=== PATIENT | male | born 1960 | race Caucasian/White ===

== ENCOUNTER 2017-03-31 00:31 | Emergency (ER) | payer MEDICARE, MEDICAID ==
[~2017-03-31] VITALS: Ht 185.4 cm; Wt 80.0 kg
[2017-03-31] MEDS ORDERED: TETanus/Pertussis (Acell)/Diphther VAC/PF (Tdap-Adult) 0.5ml syringe IM ONE (01:50)
[2017-03-31 02:22] LABS: BASOPHILS % (AUTO) 0.3 % (0-1); EOSINOPHILS # (AUTO) 0.1 X10'3 (0-0.9); EOSINOPHILS % (AUTO) 0.8 % (0-6); HEMOGLOBIN 14.6 g/dl (14.0-17.9); LYMPHOCYTES # (AUTO) 1.2 X10'3 (1.1-4.8); MEAN CORPUSCULAR HEMOGLOBIN 32.4 PG (27.0-31.0); MEAN CORPUSCULAR VOLUME 95.2 FL (78-98); MEAN PLATELET VOLUME 8.1 FL (7.4-10.4); MONOCYTES # (AUTO) 0.7 X10'3 (0-0.9); MONOCYTES % (AUTO) 4.4 % (2-12); NEUTROPHILS # (AUTO) 13.3 X10'3 (1.8-7.7); NEUTROPHILS % (AUTO) 86.5 % (42-75); PLATELET COUNT 186 X10'3 (140-440); RED BLOOD COUNT 4.52 X10'6 (4.70-6.10); RED CELL DISTRIBUTION WIDTH 13.9 % (11.5-14.5); WHITE BLOOD COUNT 15.4 X10'3 (4.5-11.0)
[2017-03-31 02:34] LABS: CLARITY,URINE CLEAR (Clear); COLOR,URINE YELLOW (Yellow); GLUCOSE, URINE NEGATIVE (Neg); KETONES,URINE 15 mg/dl (Neg); LEUKOCYTE ESTERASE ,URINE NEGATIVE (Neg); NITRITES, URINE NEGATIVE (Neg); OCCULT BLOOD,URINE MODERATE (Neg); PROTEIN,URINE NEGATIVE (Neg); UROBILINOGEN,URINE 0.2 E.U/dL (0.2-1.0)
[2017-03-31 02:46] LABS: URINE AMPHETAMINE SCREEN NEGATIVE (Neg); URINE BARBITUATE SCREEN NEGATIVE (Neg); URINE BENZODIAZEPINES SCREEN NEGATIVE (Neg); URINE CANNABINOID SCREEN NEGATIVE (Neg); URINE COCAINE SCREEN NEGATIVE (Neg); URINE METHADONE SCREEN NEGATIVE (Neg); URINE OPIATE SCREEN POSITIVE (Neg); URINE PHENCYCLIDINE SCREEN NEGATIVE (Neg)
[2017-03-31 02:58] LABS: UA COLLECTION TYPE VOIDED
[2017-03-31 03:03] LABS: ACETAMINOPHEN < 2.0 UG/ML (10-30); ALANINE AMINOTRANSFERASE 40 U/L (12-78); ALBUMIN 4.8 G/DL (3.4-5.0); ALBUMIN/GLOBULIN RATIO 1.8 (1.1-1.5); ALKALINE PHOSPHATASE 66 IU/L (46-116); ANION GAP 13 (8-16); ASPARTATE AMINO TRANSFERASE 35 U/L (10-37); BILIRUBIN,TOTAL 0.8 MG/DL (0.1-1.0); BLOOD UREA NITROGEN 15 MG/DL (7-18); CHLORIDE 98 MMOL/L (99-107); CKMB RELATIVE INDEX 2.4 RATIO (0-2.5); CREATINE KINASE 611 U/L (39-308); GLUCOSE 93 MG/DL (70-104); POTASSIUM 4.2 MMOL/L (3.5-5.1); SODIUM 132 MMOL/L (135-145); TOTAL CARBON DIOXIDE 21.4 MMOL/L (24-32); TOTAL PROTEIN 7.5 G/DL (6.4-8.2); eGFR 77 ML/MIN
[2017-03-31 03:05] LABS: MYOGLOBIN 1330 ng/ml (16-96)
[2017-03-31 03:06] LABS: ETHANOL < 0.010 GM/DL (0.0-0.010)
[2017-03-31 03:07] LABS: BACTERIA,URINE NONE SEEN /HPF (Neg); SQUAMOUS EPITHELIAL CELL,UR FEW /LPF (FEW); WBC,URINE 0-4 /HPF (0-4)
[2017-03-31 03:08] LABS: HYALINE CASTS 0-3 /LPF (NEGATIVE); MUCUS STRANDS FEW /LPF (Neg)
[2017-03-31 03:47] VITALS: BP 135/4
== END 2017-03-31 03:50 | disposition short-term general hospital (02) ==
LOC: ER 00:31
DX: S02.40EA Zygomatic fracture, right side, initial encounter for closed fracture (principal); S00.83XA Contusion of other part of head, initial encounter; S00.11XA Contusion of right eyelid and periocular area, initial encounter; S60.512A Abrasion of left hand, initial encounter; S60.511A Abrasion of right hand, initial encounter; S50.811A Abrasion of right forearm, initial encounter; R41.82 Altered mental status, unspecified; I62.9 Nontraumatic intracranial hemorrhage, unspecified; X58.XXXA Exposure to other specified factors, initial encounter; Y93.89 Activity, other specified; Y92.89 Other specified places as the place of occurrence of the external cause; Y99.8 Other external cause status
CPT/HCPCS: 36415; 70450; 70486; 80053; 80305; 80320; 80329; 81001; 82140; 82550; 82553; 83735; 83874; 84439; 84443; 84484; 85025; 90471; 90715; 93005; 99291

== ENCOUNTER 2018-03-31 13:11 | Emergency (ER) | payer MEDICARE, MEDICAID ==
[~2018-03-31] VITALS: Ht 185.4 cm; Wt 59.1 kg
[2018-03-31 14:00] LABS: BASOPHILS # (AUTO) 0.1 X10'3 (0-0.2); BASOPHILS % (AUTO) 0.7 % (0-1); EOSINOPHILS # (AUTO) 0.2 X10'3 (0-0.9); EOSINOPHILS % (AUTO) 1.3 % (0-6); HEMATOCRIT 42.6 % (42.0-52.0); HEMOGLOBIN 14.3 g/dl (14.0-17.9); LYMPHOCYTES # (AUTO) 1.4 X10'3 (1.1-4.8); LYMPHOCYTES % (AUTO) 8.5 % (21-51); MEAN CORPUSCULAR HEMOGLOBIN 31.3 PG (27.0-31.0); MEAN CORPUSCULAR HGB CONC 33.6 g/dL (33.0-36.5); MEAN CORPUSCULAR VOLUME 93.2 FL (78-98); MEAN PLATELET VOLUME 8.8 FL (7.4-10.4); MONOCYTES # (AUTO) 1.1 X10'3 (0-0.9); MONOCYTES % (AUTO) 6.8 % (2-12); NEUTROPHILS # (AUTO) 13.4 X10'3 (1.8-7.7); NEUTROPHILS % (AUTO) 82.7 % (42-75); PLATELET COUNT 178 X10'3 (140-440); RED BLOOD COUNT 4.57 X10'6 (4.70-6.10); RED CELL DISTRIBUTION WIDTH 14.6 % (11.5-14.5); WHITE BLOOD COUNT 16.2 X10'3 (4.5-11.0)
[2018-03-31 14:11] LABS: ALANINE AMINOTRANSFERASE 24 U/L (12-78); ALBUMIN 4.2 G/DL (3.4-5.0); ALBUMIN/GLOBULIN RATIO 1.5 (1.1-1.5); ALKALINE PHOSPHATASE 68 IU/L (46-116); ANION GAP 14 (8-16); ASPARTATE AMINO TRANSFERASE 23 U/L (10-37); BILIRUBIN,TOTAL 0.5 MG/DL (0.1-1.0); BLOOD UREA NITROGEN 7 MG/DL (7-18); CALCIUM 9.3 MG/DL (8.5-10.1); CHLORIDE 101 MMOL/L (99-107); GLUCOSE 100 MG/DL (70-104); POTASSIUM 3.7 MMOL/L (3.5-5.1); SODIUM 138 MMOL/L (135-145); TOTAL CARBON DIOXIDE 22.7 MMOL/L (24-32); eGFR 77 ML/MIN
--- NOTE | 2018-03-31 14:15 | NUR ---
[facility] [place] [employer] PH# [phone], WILL CALL LATER TO SEE IF PT MEDICATION INFO CAN BE FAXED HERE.
[2018-03-31 14:19] LABS: ETHANOL < 0.010 GM/DL (0.0-0.010)
--- NOTE | 2018-03-31 14:25 | NUR ---
PT AMBULATORY TO THE BATHROOM WITH STEADY GAIT, NAMRATA AT BATHROOM WATCHING PT CHANGE AND PROVIDE URINE SAMPLE PT CUT HIMSELF CORSETIER AND HAS LONG BELT ON HIS BLUE JEANS, REGISTRATION CALLED TO OVERFLOW TO HAVE LARGE AMOUNT OF MONEY TO COUNT AND PLACE IN SAFE.
--- NOTE | 2018-03-31 14:45 | NUR ---
BELONGINGS REVIEWED BY KEVIN WITH SECURITY, PT STATES HE NEEDS CANE TO WALK AND CAN NON USE WALKER, CANE LABELED WITH PT STICKER AND PLACED IN NURSES STATION TO BE USED FOR PT AMBULATION AT NURSES DISCRETION.
--- NOTE | 2018-03-31 15:00 | NUR ---
REGISTRATION AT PT BEDSID NOW, MONEY BEING COUNTED AND LOCKED UP BY REGISTRATION NOW.
[2018-03-31 15:04] LABS: CLARITY,URINE CLEAR (Clear); COLOR,URINE YELLOW (Yellow); GLUCOSE, URINE NEGATIVE (Neg); KETONES,URINE NEGATIVE (Neg); LEUKOCYTE ESTERASE ,URINE NEGATIVE (Neg); NITRITES, URINE NEGATIVE (Neg); OCCULT BLOOD,URINE MODERATE (Neg); PH,URINE 6.5 (4.8-8.0); PROTEIN,URINE NEGATIVE (Neg); UROBILINOGEN,URINE 0.2 E.U/dL (0.2-1.0)
[2018-03-31 15:08] LABS: UA COLLECTION TYPE NON-SPECIFIED
--- NOTE | 2018-03-31 15:18 | NUR ---
CALLED [facility] IN [place] REQUESTED MEDICATION LIST TO BE FAXED TO ED OVERFLOW.
[2018-03-31 15:20] LABS: URINE AMPHETAMINE SCREEN NEGATIVE (Neg); URINE BARBITUATE SCREEN NEGATIVE (Neg); URINE BENZODIAZEPINES SCREEN NEGATIVE (Neg); URINE CANNABINOID SCREEN NEGATIVE (Neg); URINE COCAINE SCREEN NEGATIVE (Neg); URINE METHADONE SCREEN NEGATIVE (Neg); URINE OPIATE SCREEN POSITIVE (Neg); URINE PHENCYCLIDINE SCREEN NEGATIVE (Neg)
[2018-03-31 15:21] LABS: HYALINE CASTS 0-3 /LPF (NEGATIVE); MUCUS STRANDS FEW /LPF (Neg); SQUAMOUS EPITHELIAL CELL,UR FEW /LPF (FEW)
[2018-03-31 15:23] LABS: BACTERIA,URINE NONE SEEN /HPF (Neg); SPERM FEW /HPF (NEGATIVE); WBC,URINE 0-4 /HPF (0-4)
[2018-03-31] MEDS ORDERED: CLON-527 PO (17:05)
[2018-03-31] MEDS ORDERED: TIZA2CAP7 PO (17:05)
[2018-03-31] MEDS ORDERED: OXYC-138 PO (17:05)
[2018-03-31] MEDS ORDERED: IBUP-1986 PO (17:05)
[2018-03-31] MEDS ORDERED: QUET200T PO (17:05)
[2018-03-31] MEDS ORDERED: ASPI-107 PO (17:05)
[2018-03-31] MEDS ORDERED: BUDE10.2 INH (17:05)
[2018-03-31] MEDS ORDERED: ALBU18HF2 INH (17:05)
[2018-03-31] MEDS ORDERED: NIAC-34 PO (17:05)
[2018-03-31] MEDS ORDERED: BUSP10TA11 PO (17:05)
[2018-03-31] MEDS ORDERED: LEVO50TA8 PO (17:05)
[2018-03-31] MEDS ORDERED: FLO0.4C PO (17:05)
[2018-03-31] MEDS ORDERED: CLON-528 PO (17:05)
--- NOTE | 2018-03-31 18:10 | NUR ---
GAVE REPORT TO DR MAC FABIAN TELEPSYCH, MONITOR AT BEDSIDE, LIGHT ON AND CURTAIN ON SIDE DRAW FOR PRIVACY, PT STILL IN LINE OF SITE OF NURSES STATION, VISIBLE TO 2 RN AND 1 SITTER
--- NOTE | 2018-03-31 18:20 | NUR ---
SPOKE TO MY CHARGE NURSE REGARDING NEED FOR CLOSER SITTER OBSERVATION DUE TO PATIENT ATTEMPTING TO SLICE THROAT PRIOR TO ARRIVING ON UNIT.
[2018-03-31] MEDS ORDERED: albuterol 2.5 MG/3 ML nebule NEB PRN (18:25)
--- NOTE | 2018-03-31 18:50 | NUR ---
MEDS BROUGHT DOWN TO PHARMACY FOR STORAGE
[2018-03-31] MEDS ORDERED: non-formulary drug (Budesonide/Formoterol Fumarate (Symbicort 160-4.5 Mcg Inhaler) 2 PUFFS INH SCH ×2 (20:00)
[2018-03-31] MEDS: busPIRone 5mg tablet PO SCH (20:09)
[2018-03-31] MEDS: tamsulosin 0.4mg capsule PO SCH (20:09)
[2018-03-31] MEDS: aspirin 81mg tab.chew PO SCH (20:09)
[2018-03-31] MEDS: clonazePAM 1mg tablet PO SCH (20:10)
[2018-03-31] MEDS: oxyCODONE/APAP 10/325mg tablet PO PRN (20:12)
--- NOTE | 2018-03-31 20:13 | NUR ---
MEDICATED FOR C/O CHRONIC BACK PAIN, AWAITING XANAFELX FROM PHARMACY AND SEROQUEL.
[2018-03-31] MEDS: albuterol 2.5 MG/3 ML nebule NEB SCH (20:20)
[2018-03-31] MEDS: budesonide 0.5mg/2ml UD nebule IH SCH (20:20)
[2018-03-31] MEDS: tizanidine 4mg tablet PO PRN (20:38)
--- NOTE | 2018-03-31 20:38 | NUR ---
PT PARANOID, WANTS TO "CHECK OFF" MEDS ON HIS LIST HIS RECEIVES THEM.
[2018-03-31] MEDS ORDERED: quetiapine 100mg tablet PO SCH (21:00)
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
[2018-04-01] MEDS: oxyCODONE/APAP 10/325mg tablet PO PRN ×4 (02:50→22:32)
--- NOTE | 2018-04-01 03:09 | NUR ---
MEDICATED FOR C/O BACK PAIN.
[2018-04-01 07:00] LABS: BASOPHILS # (AUTO) 0.1 X10'3 (0-0.2); BASOPHILS % (AUTO) 0.6 % (0-1); EOSINOPHILS # (AUTO) 0.3 X10'3 (0-0.9); EOSINOPHILS % (AUTO) 2.6 % (0-6); HEMATOCRIT 39.1 % (42.0-52.0); HEMOGLOBIN 13.6 g/dl (14.0-17.9); LYMPHOCYTES # (AUTO) 1.8 X10'3 (1.1-4.8); LYMPHOCYTES % (AUTO) 17.8 % (21-51); MEAN CORPUSCULAR HEMOGLOBIN 31.9 PG (27.0-31.0); MEAN CORPUSCULAR HGB CONC 34.7 g/dL (33.0-36.5); MEAN PLATELET VOLUME 8.2 FL (7.4-10.4); MONOCYTES # (AUTO) 0.8 X10'3 (0-0.9); MONOCYTES % (AUTO) 8.1 % (2-12); NEUTROPHILS # (AUTO) 7.1 X10'3 (1.8-7.7); NEUTROPHILS % (AUTO) 70.9 % (42-75); PLATELET COUNT 152 X10'3 (140-440); RED BLOOD COUNT 4.25 X10'6 (4.70-6.10); RED CELL DISTRIBUTION WIDTH 14.4 % (11.5-14.5)
[2018-04-01] MEDS: busPIRone 5mg tablet PO SCH ×2 (07:11→19:30)
[2018-04-01] MEDS: levoTHYROXINE 25mcg tablet PO SCH (07:11)
[2018-04-01] MEDS: tamsulosin 0.4mg capsule PO SCH ×2 (07:11→19:30)
[2018-04-01] MEDS: aspirin 81mg tab.chew PO SCH ×2 (07:11→19:30)
[2018-04-01] MEDS: clonazePAM 1mg tablet PO SCH (07:11)
[2018-04-01] MEDS: tizanidine 4mg tablet PO PRN (07:12)
[2018-04-01 07:14] LABS: ALANINE AMINOTRANSFERASE 24 U/L (12-78); ALBUMIN 3.7 G/DL (3.4-5.0); ALBUMIN/GLOBULIN RATIO 1.3 (1.1-1.5); ALKALINE PHOSPHATASE 64 IU/L (46-116); ANION GAP 11 (8-16); ASPARTATE AMINO TRANSFERASE 28 U/L (10-37); BILIRUBIN,TOTAL 0.8 MG/DL (0.1-1.0); BLOOD UREA NITROGEN 10 MG/DL (7-18); BUN/CREATININE RATIO 9.7 (5.4-32.0); CALCIUM 8.9 MG/DL (8.5-10.1); CHLORIDE 103 MMOL/L (99-107); CREATININE 1.03 MG/DL (0.60-1.10); GLUCOSE 95 MG/DL (70-104); POTASSIUM 3.1 MMOL/L (3.5-5.1); SODIUM 140 MMOL/L (135-145); TOTAL CARBON DIOXIDE 26.3 MMOL/L (24-32); TOTAL PROTEIN 6.5 G/DL (6.4-8.2); eGFR 74 ML/MIN
[2018-04-01] MEDS: budesonide 0.5mg/2ml UD nebule IH SCH ×2 (07:46→19:52)
[2018-04-01] MEDS: albuterol 2.5 MG/3 ML nebule NEB SCH ×4 (07:46→19:53)
--- NOTE | 2018-04-01 07:49 | NUR ---
RT ARRIVES TO GIVE BREATHING TREATMENT. PT CONCERNED ABOUT HIS PERCOCET DOSE, STATES HE GETS 20MG EVERY 6 HOURS. CHECK THE MED REC AND REVIEW IT WITH PHARMACIST DARLENE WHO WILL CHECK IT OUT AND LET THE NURSE KNOW.
--- NOTE | 2018-04-01 08:00 | NUR ---
PT REPORTS THAT HE LIVES IN [place] AND HAS AN APARTMENT THERE AND IS NOT HOMELESS.
[2018-04-01] MEDS ORDERED: oxyCODONE/APAP 10/325mg tablet PO ONE (08:15)
[2018-04-01] MEDS ORDERED: ibuprofen 200mg tablet PO PRN (08:30)
--- NOTE | 2018-04-01 09:12 | NUR ---
Note augie in ED - 04/01/18 at 0915 by RUDDY PT REPORTS THAT SHE IS STILL HAVING HER VISIONS. PT TALKING TO HERSELF. WILL MONITOR PT FOR ANY INCREASED IN AGITATION. PT HAS EATEN ALL HER BREAKFAST.
--- NOTE | 2018-04-01 09:15 | NUR ---
[facility] TARYN IN ROOM TO EVAL PT.
--- NOTE | 2018-04-01 09:44 | NUR ---
[facility], REQUESTS ANOTHER PSYCH TELE EVAL TO GET ANOTHER ANITPSYCHOTIC MEDICATION ON BOARD DUE TO PTS PARANOIA AND DISORGANIZED AND CONFUSED THINKING.
--- NOTE | 2018-04-01 10:31 | NUR ---
SOC IS CALLED TO SET UP A RE-EVAL PSYCH-TELE. COMPUTER IN PT'S ROOM AT THIS TIME WAITING FOR PSYCHIATRIST TO CALL FOR UPDATE. PT SLEEPING.
--- NOTE | 2018-04-01 11:03 | NUR ---
SPOKE TO DR REYES PRIOR TO THE PSYCH TELE EVAL TO REVIEW PT'S INFORMATION. TELE IS SET UP IN PT'S ROOM.
[2018-04-01] MEDS ORDERED: clonazePAM 0.5mg tablet PO SCH ×2 (12:00→21:00)
[2018-04-01] MEDS ORDERED: nicotine 14mg patch - 24hr TD SCH ×2 (12:25→12:35)
[2018-04-01] MEDS: nicotine 14mg patch - 24hr TD SCH (13:17)
--- NOTE | 2018-04-01 15:15 | NUR ---
PT RECEIVING ROUTINE BREATHING TREATMENT.
--- NOTE | 2018-04-01 15:32 | NUR ---
PT'S COMMAND AND CONTROL FROM [facility] KARI SAHU ASKS TO BE CALLED WHEN PT IS PLACED AT [phone]
[2018-04-01] MEDS ORDERED: potassium Cl 20 mEq SR tablet PO STA (16:16)
[2018-04-01] MEDS ORDERED: aspirin 81mg tab.chew PO ONE (16:20)
--- NOTE | 2018-04-01 16:50 | NUR ---
[facility] CALLS FOR INFO BUT UNABLE TO TAKE PT DUE TO HIS NEBULIZER TREATMENTS.
--- NOTE | 2018-04-01 20:00 | NUR ---
The patient is resting on his bed quietly. He has been medication compliant. He is complaining of high anxiety. He is also complaining of pain in his left side when he takes a deep breath. He is receiving breathing treatments at this time. He previously had a CXR and work up. He was given motrin. He stated he did not know he was on a 5150 hold and that was explained to him. He was asking if he could return home and was told that would be the decision of [facility]. He has superficial cuts to the front of his neck which are without s/s of infection. He denies thoughts of harming himself or others. He was asked about his belief that he had killed his parents and he explained by stating he thought that he had "Daymares" He denies A/V hallucinations or paranoia. He believes when he hears voices that he is hearing spirits. He is oriented to month and year but did not know what city he was in and he was made aware that he was in [place]. He also reported that since he has no teeth it was hard for him to eat his dinner and extra food items were given to him like jello and yogurt. His diet will be modified to a mechanical soft or chopped diet.
[2018-04-01] MEDS ORDERED: quetiapine 100mg tablet PO SCH (21:00)
--- NOTE | 2018-04-01 22:42 | NUR ---
The patient was awakened for troponin level. Snack and pain medication given and appears to be back asleep at this time
--- NOTE | 2018-04-02 00:40 | NUR ---
The patient appears to be asleep at this time
--- NOTE | 2018-04-02 02:45 | NUR ---
The patient appears to be asleep
--- NOTE | 2018-04-02 04:57 | NUR ---
The patient appears to be asleep at this time
[2018-04-02] MEDS: oxyCODONE/APAP 10/325mg tablet PO PRN ×4 (05:42→17:44)
--- NOTE | 2018-04-02 06:30 | NUR ---
Report received from Candelaria CM. Patient observed resting in bed.
[2018-04-02] MEDS: albuterol 2.5 MG/3 ML nebule NEB SCH ×3 (07:00→15:00)
[2018-04-02] MEDS: busPIRone 5mg tablet PO SCH (07:42)
[2018-04-02] MEDS: levoTHYROXINE 25mcg tablet PO SCH (07:43)
[2018-04-02] MEDS: tamsulosin 0.4mg capsule PO SCH (07:43)
[2018-04-02] MEDS: aspirin 81mg tab.chew PO SCH (07:43)
[2018-04-02] MEDS: budesonide 0.5mg/2ml UD nebule IH SCH (08:00)
[2018-04-02] MEDS ORDERED: clonazePAM 0.5mg tablet PO SCH (08:00)
--- NOTE | 2018-04-02 08:30 | NUR ---
Patient eats his breakfast. He states that when he is done eating he would like to wash up and have his bedding changed.
[2018-04-02] MEDS: tizanidine 4mg tablet PO PRN ×2 (10:10→16:46)
--- NOTE | 2018-04-02 10:30 | NUR ---
Patient changes clothing and washes self with wipes. Bedding changed. Patient reports continued pain, he is not due for percocet and education is provided r/t zanaflex. Zanafelx administered as prescribed.
[2018-04-02] MEDS: nicotine 14mg patch - 24hr TD SCH (11:33)
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
--- NOTE | 2018-04-02 14:49 | NUR ---
PT RESTING ON BACK SITTING UP NO NEEDS AT THIS TIME
--- NOTE | 2018-04-02 15:40 | NUR ---
Nurse to nurse with [facility]. Patient to be presented to prescriber there. RN consult with [facility] Special Investigator Cristin Hardin. She has worked with patient for the last year. She states that patient will often not remember when he took his meds last. He also will forget when he has last eaten. She reports that he does not have family around that helps him.
--- NOTE | 2018-04-02 16:50 | NUR ---
Clayton reports pain. RN administered zanaflex as ordered.
[2018-04-02 17:28] VITALS: BP 118/82
--- NOTE | 2018-04-02 17:29 | NUR ---
PT ACCEPTED TO [facility] PH# [phone], ACCEPTING DOCTOR ESCALANTE TO UNIT 1.
--- NOTE | 2018-04-02 17:50 | NUR ---
Patient medicated for c/o pain.
== END 2018-04-02 19:05 ==
LOC: ER 13:12
DX: R45.851 Suicidal ideations (principal); F20.9 Schizophrenia, unspecified; F29 Unspecified psychosis not due to a substance or known physiological condition; D72.829 Elevated white blood cell count, unspecified; F32.9 Major depressive disorder, single episode, unspecified; F12.90 Cannabis use, unspecified, uncomplicated; Z79.82 Long term (current) use of aspirin; Z79.899 Other long term (current) drug therapy
CPT/HCPCS: 36415; 71045; 80053; 80305; 80320; 81001; 84443; 84484; 85025; 93005; 94640; 94760; 99285; J7626

== ENCOUNTER 2018-04-22 14:58 | Inpatient (IN) | payer MEDICARE, MEDICAID | END 2018-04-26 18:15 | disposition home or self-care (01) | LOC: ER 14:58 → ORTHO 4S 04-24 16:00 → ED HOLD 20:18 | PROC: 30233N1 Transfusion of Nonautologous Red Blood Cells into Peripheral Vein, Percutaneous Approach (ICD-10-PCS; principal; ~2018-04-22) | DX: I63.9 Cerebral infarction, unspecified (principal); D62 Acute posthemorrhagic anemia; S51.812A Laceration without foreign body of left forearm, initial encounter ==

== ENCOUNTER 2018-04-26 18:23 | Emergency (ER) | payer MEDICARE, MEDICAID ==
[~2018-04-26] VITALS: Ht 185.4 cm; Wt 68.2 kg
[~2018-04-26 18:23] MED LIST: ALBU18HF2 INH; ASPI-107 PO; BUDE10.2 INH; BUSP10TA11 PO; CLON-527 PO; CLON-528 PO; FLO0.4C PO; IBUP-1986 PO; LEVO50TA8 PO; NIAC-34 PO; OXYC-138 PO; QUET200T PO; TIZA2CAP7 PO
--- NOTE | 2018-04-26 18:30 | NUR ---
Pt brought to ER overflow, ambulating and escorted by PCT from Ortho/Neuro after medical clearance. Pt alert, oriented x4 and cooperative. Pt behavior somewhat anxious over change of environment. Pt clearly anxious about pain managment and pain medication. PT settled in bed, belongins cataloged and confiscated. Pt last BM 04/22/18, reported that pt has been given MOM while on O/N with no results. No c/o abdominal pain, Bowel sounds x4.
--- NOTE | 2018-04-26 19:40 | NUR ---
Pt still anxious about pain medication. Reassurance provided, behavior appropriate and cooperative.
[2018-04-26] MEDS ORDERED: oxyCODONE/APAP 10/325mg tablet PO ONE (20:30)
[2018-04-26] MEDS ORDERED: CLON-568 (20:44)
--- NOTE | 2018-04-26 20:47 | NUR ---
med rec completed and signed by dr. fox. pt just given percocet 10/325 for 8 out of 10 back and left rib pain.
[2018-04-26] MEDS ORDERED: acetaminophen 325mg tablet PO PRN ×3 (21:00)
[2018-04-26] MEDS ORDERED: albuterol 2.5 MG/3 ML nebule NEB PRN (21:00)
[2018-04-26] MEDS ORDERED: tizanidine 4mg tablet PO PRN (21:05)
[2018-04-26] MEDS: clonazePAM 1mg tablet PO SCH (21:18)
[2018-04-26] MEDS: quetiapine 100mg tablet PO SCH (21:19)
--- NOTE | 2018-04-26 21:50 | NUR ---
Pt medications adminstered. Warm blanket for back pain given. Issues with constipation discussed w/ patient. Pt states stool softeners too harsh, but would like 2 senna tablets BID for maintanence, and is willing to try prune juice and MOM cocktail in the AM.
--- NOTE | 2018-04-26 22:30 | NUR ---
Pt making may trips to the bathroom. He states that frequent urination at night is normal for him. Pt calm and behavior appropriate and cooperative.
--- NOTE | 2018-04-26 23:30 | NUR ---
Pt requested and was given Jello x 2. Pt currently sleeping on his back with eye mask in place. Respirations even and unlabored.
--- NOTE | 2018-04-27 00:30 | NUR ---
Pt appears to be sleeping at this time. Respirations even and unlabored.
[2018-04-27] MEDS: oxyCODONE/APAP 10/325mg tablet PO PRN ×5 (01:21→20:33)
--- NOTE | 2018-04-27 01:34 | NUR ---
Pt made trip to the bathroom. Pt requested 1 Percocet for 8/10 pain. Pt behavior solmnolent. Pt returned to bed and given warm blanket to place on his back to assist in pain relief.
--- NOTE | 2018-04-27 02:34 | NUR ---
20 min after administration of pain medication, pt approached nursing station and asked for more pain medication. Pt told he was given a percocet 20 min. earlier and he needed to wait longer for pain medication to take effect. Pt returned to bed and was noted that he was sleepin quietly, respirations even and unlabored.
--- NOTE | 2018-04-27 02:40 | NUR ---
Pt sitting on the side of the bed quietly. After a few minutes patient returned to bed, resting.
--- NOTE | 2018-04-27 03:25 | NUR ---
Pt up to bathroom, then back to bed.
--- NOTE | 2018-04-27 04:00 | NUR ---
Pt asking for a Percocet for chronic back pain. Pt informed that it was too early for Percocet admninistation. Pt stated that he always takes a Percocet at 0400. Pt informed that pain medication was PRN and that it would be administered for pain no more than every four hours. Pt requested he be woken up when pain medication was available. Pt told that he would not be woken up from sleep for pain medication, but for pain as prescribed.
--- NOTE | 2018-04-27 05:10 | NUR ---
Pt sleeping soundly on his back. Respirations even and unlabored.
[2018-04-27] MEDS ORDERED: clonazePAM 0.5mg tablet PO SCH (08:00)
[2018-04-27] MEDS: tamsulosin 0.4mg capsule PO SCH ×2 (08:02→20:31)
[2018-04-27] MEDS: sennosides 8.6mg tablet PO SCH ×2 (08:02→20:33)
[2018-04-27] MEDS: busPIRone 5mg tablet PO SCH ×2 (08:04→20:33)
[2018-04-27] MEDS: clonazePAM 1mg tablet PO SCH ×2 (08:04→20:33)
[2018-04-27] MEDS: levoTHYROXINE 25mcg tablet PO SCH (08:05)
--- NOTE | 2018-04-27 09:40 | NUR ---
PT IS UP AT NURSES STATION, UPSET ABOUT BREAKFAST NOT BEING WHAT HE WANTED, WE ARE TRYING TO ACCOMIDATE HIM
--- NOTE | 2018-04-27 09:52 | NUR ---
PT IS SITTING UP ON SIDE OF BED, NO S/S OF DISTRESS
--- NOTE | 2018-04-27 11:09 | NUR ---
PT IS SITTING IN BED COLORING, NO AGITATION OBSERVED
--- NOTE | 2018-04-27 11:46 | NUR ---
pt requesting prune juice, apple sauce, and butter for bm, sopke to provider, he said he does not recommend that mixture, that he should take the medications as prescribed
[2018-04-27] MEDS: clonazePAM 0.5mg tablet PO SCH (12:09)
--- NOTE | 2018-04-27 12:50 | NUR ---
PT UP WALKING TO THE BR
--- NOTE | 2018-04-27 13:51 | NUR ---
PT IS SITTING AT BEDSIDE, EATING HIS LUNCH
--- NOTE | 2018-04-27 15:02 | NUR ---
PT IS SITTING UP IN BED, NO S/S OF DISTRESS OBSERVED
--- NOTE | 2018-04-27 15:54 | NUR ---
PT IS SITTING UP AT BEDSIDE, NO S/S OF DISTRESS OBSERVED
--- NOTE | 2018-04-27 17:07 | NUR ---
PT IS SITTING UP ON HIS BED, COLORING, NO S/S OF DISTRESS OBSERVED
--- NOTE | 2018-04-27 18:08 | NUR ---
PT IS SITTING ON HIS BED, CALM, NO S/S OF AGITATION, WILL CONTINUE TO OBSERVE
--- NOTE | 2018-04-27 18:52 | NUR ---
PT IS SITTING IN BED SPEAKING WITH STAFF, NO S/S OF AGITATION
--- NOTE | 2018-04-27 20:00 | NUR ---
PT IS ANXIOUSLY AWAITING MEDICATIONS
[2018-04-27] MEDS: quetiapine 100mg tablet PO SCH (20:32)
[2018-04-27] MEDS ORDERED: tamsulosin 0.4mg capsule PO ONE (21:00)
--- NOTE | 2018-04-27 21:02 | NUR ---
PT UP TO THE BATHROOM
--- NOTE | 2018-04-27 21:59 | NUR ---
PT IS RESTING COMFORTABLY, NO S/S OF ANY DISTRESS.
--- NOTE | 2018-04-28 01:21 | NUR ---
NO NEEDS AT THIS TIME. PT RESTING COMFORTABLY. RESPIRATIONS EVEN AND UNLABORED. NO S/S OF DISTRESS.
[2018-04-28] MEDS: oxyCODONE/APAP 10/325mg tablet PO PRN ×4 (04:40→17:21)
--- NOTE | 2018-04-28 04:42 | NUR ---
PT AMBULATED TO RESTROOM. AT THIS TIME PT C/O 8 BACK PAIN. ADMIN PRN PAIN MEDICATION.
--- NOTE | 2018-04-28 04:50 | NUR ---
CHANGED PT DRESSING TO WOUND ON LEFT WRIST. NO SIGNS OF INFECTION. PLACED NON-ADHERENT GAUZE OVER STERI STRIPS AND WRAPPED IN COBAN. REAPPLIED WRIST SPLINT.
[2018-04-28] MEDS: tamsulosin 0.4mg capsule PO SCH (07:20)
[2018-04-28] MEDS: levoTHYROXINE 25mcg tablet PO SCH (07:20)
[2018-04-28] MEDS: busPIRone 5mg tablet PO SCH (07:21)
[2018-04-28] MEDS: sennosides 8.6mg tablet PO SCH (07:21)
[2018-04-28] MEDS: clonazePAM 0.5mg tablet PO SCH (07:21)
[2018-04-28] MEDS: clonazePAM 1mg tablet PO SCH (07:21)
[2018-04-28 17:41] VITALS: BP 99/62
--- NOTE | 2018-04-28 17:44 | NUR ---
called mental health on 3rd floor to give report and mental health told me that i did not need to give them report because when they are ready they will come to er overflow to receive report when they pick pt up
[2018-04-28] MEDS ORDERED: nicotine 14mg patch - 24hr TD SCH (17:45)
--- NOTE | 2018-04-28 18:21 | NUR ---
gave report to jacky archibald
--- NOTE | 2018-04-28 18:26 | NUR ---
Recieved Report from Brit CM, patient is eating dinner, will continue to monitor.
[2018-04-28] MEDS ORDERED: BUSP10TA11 PO (20:36)
[2018-04-28] MEDS ORDERED: ALB0.5UD IH (20:36)
== END 2018-04-28 19:30 | disposition home or self-care (01) ==
LOC: ER 18:24
DX: R45.851 Suicidal ideations (principal); F32.9 Major depressive disorder, single episode, unspecified; F20.9 Schizophrenia, unspecified; F12.90 Cannabis use, unspecified, uncomplicated; Z88.8 Allergy status to other drugs, medicaments and biological substances; Z79.899 Other long term (current) drug therapy
CPT/HCPCS: 99285

== ENCOUNTER 2018-04-28 17:35 | Inpatient (IN) | payer MEDICARE, MEDICAID | END 2018-04-30 07:07 | disposition still patient (30) | LOC: ADULT MH 17:35 | DX: T14.91XA Suicide attempt, initial encounter (principal); D62 Acute posthemorrhagic anemia; X83.8XXA Intentional self-harm by other specified means, initial encounter ==

== ENCOUNTER 2018-04-30 02:39 | Inpatient (IN) | payer MEDICARE, MEDICAID ==
[~2018-04-30] VITALS: Ht 188 cm; Wt 166.5 kg
[2018-04-30] VITALS (8 sets, daily range): BP systolic 85–119; BP diastolic 58–89
[~2018-04-30 02:39] MED LIST changes: -ASPI-107 PO; -CLON-527 PO; +CLON-568; -IBUP-1986 PO; -NIAC-34 PO; +NICO-631 TD; +PANT40VI2 IV; +TRAZ-218 PO
[2018-04-30] MEDS ORDERED: acetaminophen 325mg tablet PO PRN ×3 (05:15→11:10)
[2018-04-30] MEDS ORDERED: ondansetron/PF 4mg/2ml inj IV PRN (05:15)
[2018-04-30] MEDS ORDERED: potassium Cl 20 mEq SR tablet PO PRN ×2 (05:15)
[2018-04-30] MEDS ORDERED: magnesium 4gm in 100ml NS 100 ML IV PRN (05:15)
[2018-04-30] MEDS ORDERED: magnesium 2GM in 50ml NS 50 ML IV PRN (05:15)
[2018-04-30] MEDS ORDERED: mag hydrox/Alum hydrox/simeth 30ml oral suspension PO PRN ×2 (05:15→11:10)
[2018-04-30] MEDS ORDERED: magnesium Cl slow-release 64mg tablet PO PRN (05:15)
[2018-04-30] MEDS ORDERED: potassium Cl 40MEQ/NS 500ml 500 ML IV PRN ×2 (05:15)
[2018-04-30] MEDS ORDERED: magnesium hydroxide 30ml (MOM) UD suspension PO PRN ×2 (05:15→11:10)
--- NOTE | 2018-04-30 06:30 | NUR ---
Received report from TOI jeffers. Awaiting patient.
--- NOTE | 2018-04-30 07:15 | NUR ---
Patient arrived from behavioral health department. Stable and appropriate. Sitter in room with patient that will stay with him throughout the procedure and accompany him back to behavioral health.
[2018-04-30] MEDS: K and/or MAG REPLACEMENT MC SCH (07:32)
--- NOTE | 2018-04-30 07:50 | NUR ---
Patient to GI lab with RN.
[2018-04-30] MEDS: pantoprazole 40 MG vial IV SCH ×2 (08:00→19:32)
[2018-04-30] MEDS ORDERED: MIDAZolam 5mg/5ml vial ONE (08:05)
[2018-04-30] MEDS ORDERED: fentaNYL/PF 50MCG/1 ML 2ML syringe ONE (08:05)
[2018-04-30] MEDS ORDERED: LIDOcaine Viscous 15ml cup ONE (08:05)
[2018-04-30] MEDS ORDERED: PEG 3350/Na sulf,bicarb,Cl/KCl oral sol 4 liter bottle PO ONE (08:50)
--- NOTE | 2018-04-30 09:00 | NUR ---
Patient back from GI lab. Instructions to start colon prep at 1500.
[2018-04-30] MEDS ORDERED: traZODone 50mg tablet PO PRN (11:10)
[2018-04-30] MEDS ORDERED: albuterol 2.5 MG/3 ML nebule NEB PRN (11:10)
[2018-04-30] MEDS: oxyCODONE/APAP 10/325mg tablet PO PRN ×3 (11:22→23:34)
[2018-04-30] MEDS: normal saline 1000ml 1,000 ML IV SCH ×2 (12:58→23:34)
[2018-04-30] MEDS: clonazePAM 0.5mg tablet PO SCH (12:58)
[2018-04-30 13:03] LABS: ALANINE AMINOTRANSFERASE 24 U/L (12-78); ALBUMIN 3.2 G/DL (3.4-5.0); ALBUMIN/GLOBULIN RATIO 1.2 (1.1-1.5); ALKALINE PHOSPHATASE 78 IU/L (46-116); ANION GAP 5 (8-16); ASPARTATE AMINO TRANSFERASE 18 U/L (10-37); BILIRUBIN,TOTAL 0.3 MG/DL (0.1-1.0); BLOOD UREA NITROGEN 19 MG/DL (7-18); BUN/CREATININE RATIO 22.9 (5.4-32.0); CALCIUM 8.7 MG/DL (8.5-10.1); CHLORIDE 109 MMOL/L (99-107); CREATININE 0.83 MG/DL (0.60-1.10); GLUCOSE 91 MG/DL (70-104); POTASSIUM 4.2 MMOL/L (3.5-5.1); SODIUM 143 MMOL/L (135-145); TOTAL CARBON DIOXIDE 29.3 MMOL/L (24-32); TOTAL PROTEIN 5.8 G/DL (6.4-8.2); eGFR > 90 ML/MIN
[2018-04-30 17:41] LABS: BASOPHILS % (AUTO) 0.7 % (0-1); EOSINOPHILS # (AUTO) 0.3 X10'3 (0-0.9); EOSINOPHILS % (AUTO) 4.4 % (0-6); HEMATOCRIT 29.2 % (42.0-52.0); HEMOGLOBIN 9.6 g/dl (14.0-17.9); LYMPHOCYTES # (AUTO) 1.9 X10'3 (1.1-4.8); LYMPHOCYTES % (AUTO) 29.2 % (21-51); MEAN CORPUSCULAR HEMOGLOBIN 30.6 PG (27.0-31.0); MEAN CORPUSCULAR HGB CONC 32.8 g/dL (33.0-36.5); MEAN CORPUSCULAR VOLUME 93.2 FL (78-98); MEAN PLATELET VOLUME 7.7 FL (7.4-10.4); MONOCYTES # (AUTO) 0.7 X10'3 (0-0.9); MONOCYTES % (AUTO) 10.3 % (2-12); NEUTROPHILS # (AUTO) 3.6 X10'3 (1.8-7.7); NEUTROPHILS % (AUTO) 55.4 % (42-75); PLATELET COUNT 225 X10'3 (140-440); RED BLOOD COUNT 3.13 X10'6 (4.70-6.10); RED CELL DISTRIBUTION WIDTH 15.5 % (11.5-14.5); WHITE BLOOD COUNT 6.4 X10'3 (4.5-11.0)
--- NOTE | 2018-04-30 18:10 | NUR ---
Received report from kellen CM pt is expressed frustration over a aide from [facility] coming into his room to give him his belongings, pt states that aide hates people.
--- NOTE | 2018-04-30 18:41 | NUR ---
Problems reprioritized. Patient report given, questions answered & plan of care reviewed with TOI Jimenez.
[2018-04-30] MEDS: busPIRone 5mg tablet PO SCH (19:32)
[2018-04-30] MEDS: clonazePAM 1mg tablet PO SCH (19:32)
[2018-04-30] MEDS: bisacodyl 5mg tablet.DR PO SCH (19:32)
[2018-04-30] MEDS: quetiapine 100mg tablet PO SCH (19:32)
[2018-04-30] MEDS: tamsulosin 0.4mg capsule PO SCH (19:32)
[2018-05-01] VITALS (15 sets, daily range): BP systolic 87–126; BP diastolic 55–79
[2018-05-01] MEDS: oxyCODONE/APAP 10/325mg tablet PO PRN ×4 (03:38→20:41)
[2018-05-01 06:00] LABS: ANION GAP 6 (8-16); BLOOD UREA NITROGEN 15 MG/DL (7-18); BUN/CREATININE RATIO 15.8 (5.4-32.0); CALCIUM 8.4 MG/DL (8.5-10.1); CHLORIDE 107 MMOL/L (99-107); CREATININE 0.95 MG/DL (0.60-1.10); GLUCOSE 87 MG/DL (70-104); MAGNESIUM 2.2 MG/DL (1.5-2.4); SODIUM 143 MMOL/L (135-145); TOTAL CARBON DIOXIDE 30.3 MMOL/L (24-32); eGFR 82 ML/MIN
[2018-05-01 06:03] LABS: BASOPHILS # (AUTO) 0.1 X10'3 (0-0.2); BASOPHILS % (AUTO) 1.1 % (0-1); EOSINOPHILS # (AUTO) 0.2 X10'3 (0-0.9); HEMATOCRIT 25.8 % (42.0-52.0); HEMOGLOBIN 8.8 g/dl (14.0-17.9); LYMPHOCYTES # (AUTO) 1.5 X10'3 (1.1-4.8); LYMPHOCYTES % (AUTO) 31.6 % (21-51); MEAN CORPUSCULAR HEMOGLOBIN 31.2 PG (27.0-31.0); MEAN CORPUSCULAR HGB CONC 34.2 g/dL (33.0-36.5); MEAN CORPUSCULAR VOLUME 91.3 FL (78-98); MEAN PLATELET VOLUME 7.7 FL (7.4-10.4); MONOCYTES # (AUTO) 0.5 X10'3 (0-0.9); MONOCYTES % (AUTO) 10.4 % (2-12); NEUTROPHILS # (AUTO) 2.5 X10'3 (1.8-7.7); NEUTROPHILS % (AUTO) 51.9 % (42-75); PLATELET COUNT 202 X10'3 (140-440); RED BLOOD COUNT 2.83 X10'6 (4.70-6.10); RED CELL DISTRIBUTION WIDTH 15.1 % (11.5-14.5); WHITE BLOOD COUNT 4.8 X10'3 (4.5-11.0)
--- NOTE | 2018-05-01 06:39 | NUR ---
gave report to Carley CM pt is awake and alert, on RA, sitter at bedside call lgiht and items of freq use within reach, pt working on [employer]
--- NOTE | 2018-05-01 07:06 | NUR ---
Patient in room NURY 350. I have received report from David CM and had the opportunity to ask questions and assume patient care.
[2018-05-01] MEDS: bisacodyl 5mg tablet.DR PO SCH ×2 (08:00→20:00)
[2018-05-01] MEDS: K and/or MAG REPLACEMENT MC SCH (08:00)
[2018-05-01] MEDS ORDERED: bisacodyl 10mg suppository rectal RC STA (08:26)
[2018-05-01] MEDS: levoTHYROXINE 25mcg tablet PO SCH (08:57)
[2018-05-01] MEDS: tamsulosin 0.4mg capsule PO SCH ×2 (08:57→20:42)
[2018-05-01] MEDS: clonazePAM 1mg tablet PO SCH ×2 (08:57→20:41)
[2018-05-01] MEDS: busPIRone 5mg tablet PO SCH ×2 (08:58→20:41)
[2018-05-01] MEDS: pantoprazole 40 MG vial IV SCH (08:59)
[2018-05-01] MEDS: nicotine 14mg patch - 24hr TD SCH (09:00)
--- NOTE | 2018-05-01 09:09 | NUR ---
Patient refused to have suppository at this moment will turn contract writer light when company leaves( caser up)
[2018-05-01] MEDS ORDERED: oxyCODONE/APAP 10/325mg tablet PO ONE (11:05)
[2018-05-01] MEDS: clonazePAM 0.5mg tablet PO SCH (12:47)
[2018-05-01] MEDS ORDERED: fentaNYL/PF 50MCG/1 ML 2ML syringe ONE (12:49)
[2018-05-01] MEDS ORDERED: MIDAZolam 5mg/5ml vial ONE ×2 (12:49→12:50)
[2018-05-01 12:52] LABS: BASOPHILS # (AUTO) 0.1 X10'3 (0-0.2); BASOPHILS % (AUTO) 0.8 % (0-1); EOSINOPHILS # (AUTO) 0.3 X10'3 (0-0.9); EOSINOPHILS % (AUTO) 4.3 % (0-6); HEMATOCRIT 29.6 % (42.0-52.0); HEMOGLOBIN 10.1 g/dl (14.0-17.9); LYMPHOCYTES # (AUTO) 1.6 X10'3 (1.1-4.8); LYMPHOCYTES % (AUTO) 25.6 % (21-51); MEAN CORPUSCULAR HEMOGLOBIN 31.3 PG (27.0-31.0); MEAN CORPUSCULAR HGB CONC 34.1 g/dL (33.0-36.5); MEAN CORPUSCULAR VOLUME 91.9 FL (78-98); MEAN PLATELET VOLUME 8.2 FL (7.4-10.4); MONOCYTES # (AUTO) 0.6 X10'3 (0-0.9); NEUTROPHILS # (AUTO) 3.8 X10'3 (1.8-7.7); NEUTROPHILS % (AUTO) 60.3 % (42-75); PLATELET COUNT 220 X10'3 (140-440); RED BLOOD COUNT 3.22 X10'6 (4.70-6.10); RED CELL DISTRIBUTION WIDTH 15.1 % (11.5-14.5); WHITE BLOOD COUNT 6.3 X10'3 (4.5-11.0)
--- NOTE | 2018-05-01 13:12 | NUR ---
[place] with GI lab came to get patient for colonoscopy. Patient was taken via wheelchair with sitter going with patient.
--- NOTE | 2018-05-01 18:20 | NUR ---
Patient in room NURY 350. I have received report from TOI Howe and had the opportunity to ask questions and assume patient care.
[2018-05-01] MEDS: diatr meglu/diatrizoate 30ml oral sol.-(3 dose) bottle PO SCH (20:38)
[2018-05-01] MEDS: quetiapine 100mg tablet PO SCH (20:42)
[2018-05-02] VITALS: BP 106/65
[2018-05-02] MEDS: oxyCODONE/APAP 10/325mg tablet PO PRN ×4 (00:43→19:08)
[2018-05-02 05:59] LABS: ALBUMIN 2.9 G/DL (3.4-5.0); ANION GAP 7 (8-16); BLOOD UREA NITROGEN 13 MG/DL (7-18); BUN/CREATININE RATIO 12.7 (5.4-32.0); CALCIUM 8.7 MG/DL (8.5-10.1); CHLORIDE 109 MMOL/L (99-107); CREATININE 1.02 MG/DL (0.60-1.10); GLUCOSE 102 MG/DL (70-104); MAGNESIUM 2.1 MG/DL (1.5-2.4); POTASSIUM 4.4 MMOL/L (3.5-5.1); SODIUM 143 MMOL/L (135-145); TOTAL CARBON DIOXIDE 27.2 MMOL/L (24-32); eGFR 75 ML/MIN
--- NOTE | 2018-05-02 06:00 | NUR ---
Patient in room NURY 350. I have received report from WILLY CM and had the opportunity to ask questions and assume patient care.
[2018-05-02 06:01] LABS: BASOPHILS # (AUTO) 0.1 X10'3 (0-0.2); BASOPHILS % (AUTO) 1.1 % (0-1); EOSINOPHILS # (AUTO) 0.2 X10'3 (0-0.9); EOSINOPHILS % (AUTO) 4.4 % (0-6); HEMATOCRIT 27.1 % (42.0-52.0); HEMOGLOBIN 9.2 g/dl (14.0-17.9); LYMPHOCYTES # (AUTO) 1.8 X10'3 (1.1-4.8); LYMPHOCYTES % (AUTO) 35.9 % (21-51); MEAN CORPUSCULAR HEMOGLOBIN 30.9 PG (27.0-31.0); MEAN CORPUSCULAR HGB CONC 33.9 g/dL (33.0-36.5); MEAN CORPUSCULAR VOLUME 91.3 FL (78-98); MEAN PLATELET VOLUME 8.2 FL (7.4-10.4); MONOCYTES # (AUTO) 0.5 X10'3 (0-0.9); MONOCYTES % (AUTO) 9.8 % (2-12); NEUTROPHILS # (AUTO) 2.4 X10'3 (1.8-7.7); NEUTROPHILS % (AUTO) 48.8 % (42-75); PLATELET COUNT 198 X10'3 (140-440); RED BLOOD COUNT 2.97 X10'6 (4.70-6.10); WHITE BLOOD COUNT 4.9 X10'3 (4.5-11.0)
--- NOTE | 2018-05-02 06:30 | NUR ---
Problems reprioritized. Patient report given, questions answered & plan of care reviewed with TOI David.
[2018-05-02] MEDS ORDERED: diatrozoate meglu/diatrozoate sod (37% iodine) 120ML oral solution PO ONE ×2 (07:00→09:00)
[2018-05-02] MEDS: clonazePAM 1mg tablet PO SCH ×2 (07:45→19:59)
[2018-05-02] MEDS: pantoprazole 40 MG vial IV SCH (07:45)
[2018-05-02] MEDS: bisacodyl 5mg tablet.DR PO SCH ×2 (07:46→19:59)
[2018-05-02] MEDS: levoTHYROXINE 25mcg tablet PO SCH (07:46)
[2018-05-02] MEDS: tamsulosin 0.4mg capsule PO SCH ×2 (07:46→19:58)
[2018-05-02] MEDS: busPIRone 5mg tablet PO SCH ×2 (07:46→19:59)
[2018-05-02] MEDS: diatr meglu/diatrizoate 30ml oral sol.-(3 dose) bottle PO SCH ×3 (07:47→20:38)
[2018-05-02] MEDS: nicotine 14mg patch - 24hr TD SCH (07:47)
[2018-05-02 08:00] VITALS: BP_SYST 81; BP_SYST 86; BP_SYST 91; BP_DIAS 42; BP_DIAS 46; BP_DIAS 51
[2018-05-02] MEDS: K and/or MAG REPLACEMENT MC SCH (08:00)
[2018-05-02] MEDS ORDERED: iohexol 350MG/ML 100ml bottle IV ONE (10:07)
[2018-05-02] MEDS: clonazePAM 0.5mg tablet PO SCH (12:57)
--- NOTE | 2018-05-02 15:59 | NUR ---
SENT HOSPITALIST A MESSAGE REMINDING HIM TO RENEW [id number]
--- NOTE | 2018-05-02 18:08 | NUR ---
Problems reprioritized. Patient report given, questions answered & plan of care reviewed with NANCY CRUZ RN.
--- NOTE | 2018-05-02 18:30 | NUR ---
Patient in room NURY 350. I have received report from GIULIANO CM and had the opportunity to ask questions and assume patient care.
[2018-05-02] MEDS: quetiapine 100mg tablet PO SCH (19:58)
[2018-05-02 20:00] VITALS: BP_SYST 102; BP_SYST 90; BP_SYST 92; BP_DIAS 56; BP_DIAS 59; BP_DIAS 68
[2018-05-03] VITALS: BP 104/66
[2018-05-03] MEDS: oxyCODONE/APAP 10/325mg tablet PO PRN ×5 (03:56→23:39)
[2018-05-03 05:20] LABS: BASOPHILS % (AUTO) 0.9 % (0-1); EOSINOPHILS # (AUTO) 0.2 X10'3 (0-0.9); EOSINOPHILS % (AUTO) 4.8 % (0-6); HEMATOCRIT 26.2 % (42.0-52.0); HEMOGLOBIN 8.8 g/dl (14.0-17.9); LYMPHOCYTES # (AUTO) 1.5 X10'3 (1.1-4.8); LYMPHOCYTES % (AUTO) 30.5 % (21-51); MEAN CORPUSCULAR HGB CONC 33.6 g/dL (33.0-36.5); MEAN CORPUSCULAR VOLUME 92.2 FL (78-98); MONOCYTES # (AUTO) 0.6 X10'3 (0-0.9); NEUTROPHILS # (AUTO) 2.7 X10'3 (1.8-7.7); NEUTROPHILS % (AUTO) 52.8 % (42-75); PLATELET COUNT 176 X10'3 (140-440); RED BLOOD COUNT 2.84 X10'6 (4.70-6.10); RED CELL DISTRIBUTION WIDTH 15.2 % (11.5-14.5); WHITE BLOOD COUNT 5.1 X10'3 (4.5-11.0)
[2018-05-03 05:38] LABS: ALBUMIN 2.8 G/DL (3.4-5.0); ANION GAP 2 (8-16); BLOOD UREA NITROGEN 16 MG/DL (7-18); BUN/CREATININE RATIO 15.8 (5.4-32.0); CALCIUM 8.6 MG/DL (8.5-10.1); CHLORIDE 108 MMOL/L (99-107); CREATININE 1.01 MG/DL (0.60-1.10); GLUCOSE 97 MG/DL (70-104); MAGNESIUM 1.8 MG/DL (1.5-2.4); POTASSIUM 4.1 MMOL/L (3.5-5.1); SODIUM 140 MMOL/L (135-145); TOTAL CARBON DIOXIDE 30.4 MMOL/L (24-32); eGFR 76 ML/MIN
--- NOTE | 2018-05-03 06:20 | NUR ---
Problems reprioritized. Patient report given, questions answered & plan of care reviewed with GIULIANO CM.
--- NOTE | 2018-05-03 06:22 | NUR ---
Patient in room NURY 350. I have received report from NANCY CRUZ RN and had the opportunity to ask questions and assume patient care.
[2018-05-03 08:00] VITALS: BP_SYST 108; BP_SYST 117; BP_SYST 99; BP_DIAS 61; BP_DIAS 69; BP_DIAS 77
[2018-05-03] MEDS: nicotine 14mg patch - 24hr TD SCH (08:00)
[2018-05-03] MEDS: K and/or MAG REPLACEMENT MC SCH (08:00)
[2018-05-03] MEDS: clonazePAM 1mg tablet PO SCH ×2 (09:14→19:32)
[2018-05-03] MEDS: busPIRone 5mg tablet PO SCH ×2 (09:14→19:32)
[2018-05-03] MEDS: pantoprazole 40 MG vial IV SCH (09:14)
[2018-05-03] MEDS: tamsulosin 0.4mg capsule PO SCH ×2 (09:14→19:32)
[2018-05-03] MEDS: levoTHYROXINE 25mcg tablet PO SCH (09:16)
[2018-05-03 11:00] VITALS: BP 98/55
--- NOTE | 2018-05-03 11:16 | NUR ---
PT HAS NOT HAD A BM TODAY SINCE 0600
[2018-05-03] MEDS: clonazePAM 0.5mg tablet PO SCH (12:24)
--- NOTE | 2018-05-03 18:30 | NUR ---
Patient in room NURY 350. I have received report from Joann CM and had the opportunity to ask questions and assume patient care.
--- NOTE | 2018-05-03 18:36 | NUR ---
GAVE REPORT TO GRECIA CM
[2018-05-03] MEDS: quetiapine 100mg tablet PO SCH (19:32)
[2018-05-03 20:00] VITALS: BP_SYST 110; BP_SYST 113; BP_SYST 127; BP_DIAS 67; BP_DIAS 75; BP_DIAS 80
--- NOTE | 2018-05-03 21:30 | NUR ---
pt medicated for c/o pain and took his hs medications. explained all meds to him and pt stated he no longer wants to harm himself and talked about his gi bleed and the plan for surgery on Saturday to removed the mass found. pt stated he waants to take his meds and follow them according to how the Dr has ordered for him. no s&s of hearing voices noted and no verbalization of this.
[2018-05-04] VITALS: BP_SYST 106; BP_SYST 92; BP_DIAS 49; BP_DIAS 55
[2018-05-04] MEDS: oxyCODONE/APAP 10/325mg tablet PO PRN ×5 (04:46→21:38)
[2018-05-04 05:27] LABS: BASOPHILS # (AUTO) 0.1 X10'3 (0-0.2); BASOPHILS % (AUTO) 1.2 % (0-1); EOSINOPHILS # (AUTO) 0.3 X10'3 (0-0.9); EOSINOPHILS % (AUTO) 5.4 % (0-6); HEMATOCRIT 26.7 % (42.0-52.0); LYMPHOCYTES # (AUTO) 1.9 X10'3 (1.1-4.8); MEAN CORPUSCULAR HEMOGLOBIN 30.8 PG (27.0-31.0); MEAN CORPUSCULAR HGB CONC 33.5 g/dL (33.0-36.5); MEAN CORPUSCULAR VOLUME 91.7 FL (78-98); MEAN PLATELET VOLUME 8.2 FL (7.4-10.4); MONOCYTES # (AUTO) 0.6 X10'3 (0-0.9); MONOCYTES % (AUTO) 11.7 % (2-12); NEUTROPHILS # (AUTO) 2.1 X10'3 (1.8-7.7); NEUTROPHILS % (AUTO) 42.7 % (42-75); PLATELET COUNT 169 X10'3 (140-440); RED BLOOD COUNT 2.92 X10'6 (4.70-6.10); RED CELL DISTRIBUTION WIDTH 15.1 % (11.5-14.5); WHITE BLOOD COUNT 4.9 X10'3 (4.5-11.0)
[2018-05-04 05:46] LABS: ALBUMIN 3.1 G/DL (3.4-5.0); ANION GAP 6 (8-16); BLOOD UREA NITROGEN 17 MG/DL (7-18); BUN/CREATININE RATIO 17.9 (5.4-32.0); CALCIUM 9.1 MG/DL (8.5-10.1); CHLORIDE 103 MMOL/L (99-107); CREATININE 0.95 MG/DL (0.60-1.10); GLUCOSE 90 MG/DL (70-104); MAGNESIUM 1.9 MG/DL (1.5-2.4); POTASSIUM 4.1 MMOL/L (3.5-5.1); SODIUM 138 MMOL/L (135-145); TOTAL CARBON DIOXIDE 29.3 MMOL/L (24-32); eGFR 81 ML/MIN
--- NOTE | 2018-05-04 06:10 | NUR ---
Problems reprioritized. Patient report given, questions answered & plan of care reviewed with Rosie CM. pt getting vital signs done. sitter at bedside. no signs of distress.
--- NOTE | 2018-05-04 06:15 | NUR ---
I have received report from Jaye CM and had the opportunity to ask questions and assume patient care.
[2018-05-04 07:12] VITALS: BP 88/52
[2018-05-04] MEDS: K and/or MAG REPLACEMENT MC SCH (08:00)
[2018-05-04] MEDS: busPIRone 5mg tablet PO SCH ×2 (08:04→21:22)
[2018-05-04] MEDS: clonazePAM 1mg tablet PO SCH ×2 (08:04→21:36)
[2018-05-04] MEDS: pantoprazole 40mg Tablet.DR PO SCH (08:05)
[2018-05-04] MEDS: tamsulosin 0.4mg capsule PO SCH ×2 (08:06→21:22)
[2018-05-04] MEDS: levoTHYROXINE 25mcg tablet PO SCH (08:07)
[2018-05-04] MEDS: nicotine 14mg patch - 24hr TD SCH (08:07)
[2018-05-04 09:38] VITALS: BP_SYST 110; BP_SYST 90; BP_SYST 95; BP_DIAS 54; BP_DIAS 58; BP_DIAS 65
--- NOTE | 2018-05-04 09:53 | NUR ---
Notified Dr. Manzano that patients BP is low. No new orders.
--- NOTE | 2018-05-04 10:26 | NUR ---
Ok to discontinue orthostatics, order received from Dr. Manzano
[2018-05-04 11:22] VITALS: BP 89/62
[2018-05-04] MEDS: clonazePAM 0.5mg tablet PO SCH (12:43)
[2018-05-04] MEDS: normal saline 1000ml 1,000 ML IV SCH (13:54)
--- NOTE | 2018-05-04 18:20 | NUR ---
Patient in room NURY 350. I have received report from HANH CM and had the opportunity to ask questions and assume patient care. Addendum: 05/04/18 at 1902 by Farida Roy RN Amended: Links added.
--- NOTE | 2018-05-04 18:36 | NUR ---
Problems reprioritized. Patient report given, questions answered & plan of care reviewed with Farida CM.
--- NOTE | 2018-05-04 19:00 | NUR ---
pt a/o sitting edge of bed without complaints at this time. denies wanting to harm himself at this time. but said he did try prior to coming into our hospital to harm himself. sitter at the bedside.
[2018-05-04 20:00] VITALS: BP_SYST 105; BP_SYST 110; BP_SYST 118; BP_DIAS 70; BP_DIAS 73; BP_DIAS 77
[2018-05-04] MEDS: quetiapine 100mg tablet PO SCH (21:23)
[2018-05-04] MEDS: tizanidine 4mg tablet PO PRN (21:39)
--- NOTE | 2018-05-04 22:00 | NUR ---
pt laid down for sleep no changes no complaints.
[2018-05-04 22:34] VITALS: BP 110/77
[2018-05-05] VITALS: BP 92/55
--- NOTE | 2018-05-05 | NUR ---
pt resting eyes closed no changes at this time. sitter at the bedside.
--- NOTE | 2018-05-05 02:00 | NUR ---
pt resting left side and awoke briefly for iv fluids to be hung
[2018-05-05] MEDS: normal saline 1000ml 1,000 ML IV SCH ×2 (02:19→14:15)
--- NOTE | 2018-05-05 04:00 | NUR ---
pt resting eyes closed without changes. sitter at the bedside.
[2018-05-05] MEDS: oxyCODONE/APAP 10/325mg tablet PO PRN ×3 (05:19→20:42)
--- NOTE | 2018-05-05 05:20 | NUR ---
pt medicated for back and rib pain with percocet per request.
--- NOTE | 2018-05-05 05:24 | NUR ---
denies hearing voices here.
[2018-05-05] MEDS: clonazePAM 0.5mg tablet PO SCH (05:53)
--- NOTE | 2018-05-05 05:56 | NUR ---
pt became anxious with room rearranged due to potential admit and very anxious medicated with 0.5 mg of clozapine give.
--- NOTE | 2018-05-05 06:33 | NUR ---
Problems reprioritized. Patient report given, questions answered & plan of care reviewed with Ligia Hollingsworth. Addendum: 05/05/18 at 0634 by Farida Roy RN Amended: Links added.
[2018-05-05 07:00] VITALS: BP 99/59
--- NOTE | 2018-05-05 07:13 | NUR ---
Patient in room NURY 350. I have received report from Shanika CM and had the opportunity to ask questions and assume patient care.
[2018-05-05 07:34] LABS: BASOPHILS # (AUTO) 0.1 X10'3 (0-0.2); BASOPHILS % (AUTO) 0.9 % (0-1); EOSINOPHILS # (AUTO) 0.3 X10'3 (0-0.9); EOSINOPHILS % (AUTO) 4.2 % (0-6); HEMATOCRIT 29.1 % (42.0-52.0); HEMOGLOBIN 9.9 g/dl (14.0-17.9); LYMPHOCYTES # (AUTO) 1.4 X10'3 (1.1-4.8); LYMPHOCYTES % (AUTO) 22.2 % (21-51); MEAN CORPUSCULAR VOLUME 91.1 FL (78-98); MEAN PLATELET VOLUME 8.3 FL (7.4-10.4); MONOCYTES # (AUTO) 0.5 X10'3 (0-0.9); MONOCYTES % (AUTO) 8.3 % (2-12); NEUTROPHILS % (AUTO) 64.4 % (42-75); PLATELET COUNT 193 X10'3 (140-440); WHITE BLOOD COUNT 6.2 X10'3 (4.5-11.0)
[2018-05-05 07:45] LABS: ALBUMIN 3.3 G/DL (3.4-5.0); ANION GAP 6 (8-16); BLOOD UREA NITROGEN 13 MG/DL (7-18); BUN/CREATININE RATIO 14.3 (5.4-32.0); CALCIUM 8.8 MG/DL (8.5-10.1); CHLORIDE 103 MMOL/L (99-107); CREATININE 0.91 MG/DL (0.60-1.10); GLUCOSE 77 MG/DL (70-104); POTASSIUM 4.2 MMOL/L (3.5-5.1); SODIUM 136 MMOL/L (135-145); TOTAL CARBON DIOXIDE 27.5 MMOL/L (24-32); eGFR 86 ML/MIN
[2018-05-05] MEDS: pantoprazole 40mg Tablet.DR PO SCH (07:51)
[2018-05-05] MEDS: tamsulosin 0.4mg capsule PO SCH ×2 (07:52→20:41)
[2018-05-05] MEDS: levoTHYROXINE 25mcg tablet PO SCH (07:52)
[2018-05-05] MEDS: busPIRone 5mg tablet PO SCH ×2 (07:52→20:41)
[2018-05-05] MEDS: nicotine 14mg patch - 24hr TD SCH (07:52)
[2018-05-05] MEDS: clonazePAM 1mg tablet PO SCH ×2 (07:53→20:44)
[2018-05-05] MEDS: K and/or MAG REPLACEMENT MC SCH (08:00)
--- NOTE | 2018-05-05 10:17 | NUR ---
Initial: Pt admit for psychiatric hold s/p suicidal attempt L wrist laceration found to have GIB s/p colonoscopy revealed large rectosigmoid CA mass. Possibly to go to OR Saturday per MD note for colostomy. Pt currently requesting sausage and eggs TIDWM on regular diet but will need colostomy diet ed w/ low-residue diet if to go to OR for abdominal surgery. Will monitor for colostomy ed need if to OR. Currently PO 100% regular diet meeting needs w/ LBM 05/03. Rec: 1. continue regular diet 2. IF to OR for resection advance to low-reside diet post-op 3. monitor for colostomy ed needs if to OR 4. wt per rx Addendum: 05/05/18 at [address] Amended: Links added.
[2018-05-05 11:00] VITALS: BP 95/59
[2018-05-05] MEDS ORDERED: PEG 3350/Na sulf,bicarb,Cl/KCl oral sol 4 liter bottle PO ONE (15:40)
--- NOTE | 2018-05-05 17:42 | NUR ---
patient anxious at times. commenced on golytely prep fro surgery tomorrow. DR Craig into see patient . Patient appeared more calm after visit. continues to have sitter.
--- NOTE | 2018-05-05 18:05 | NUR ---
Patient in room NURY 350. I have received report from ALMA DELIA CM and had the opportunity to ask questions and assume patient care. Addendum: 05/05/18 at 1939 by Farida Roy RN Amended: Links added.
--- NOTE | 2018-05-05 18:19 | NUR ---
Problems reprioritized. Patient report given, questions answered & plan of care reviewed with breanne CM.
--- NOTE | 2018-05-05 19:10 | NUR ---
I have assumed care of this patient and received report from Ligia CM
[2018-05-05 19:39] VITALS: BP 114/79
--- NOTE | 2018-05-05 20:20 | NUR ---
pt given hs meds reviewed with them with him medicated for c/o pain with percocet po.
[2018-05-05] MEDS: quetiapine 100mg tablet PO SCH (20:40)
[2018-05-05] MEDS: tizanidine 4mg tablet PO PRN (20:43)
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
--- NOTE | 2018-05-05 22:20 | NUR ---
Dr Milan told about this and did not have any med changes at this time as he is scheduled for surgery in the Am for colon mass removal. he is aware pt took his hs pysch medications and the dosages.
--- NOTE | 2018-05-05 23:28 | NUR ---
Educated patient on evening medications Addendum: 05/05/18 at 0459 by Sondra FRAGA Amended: Links added.
[2018-05-06] VITALS (15 sets, daily range): BP systolic 108–151; BP diastolic 73–87
--- NOTE | 2018-05-06 00:10 | NUR ---
pt resting eyes closed no s7s of distress at this time.
--- NOTE | 2018-05-06 02:10 | NUR ---
pt awaoke repositioned himself resting on top of bedside table.
[2018-05-06] MEDS: normal saline 1000ml 1,000 ML IV SCH ×3 (02:45→23:33)
--- NOTE | 2018-05-06 04:00 | NUR ---
pt asleep has not completed 100% of golytely
--- NOTE | 2018-05-06 05:46 | NUR ---
pt remains npo since midnight with iv infusing at 80/hr. pt had drank 3/4 of golytely and teaching done on why he needed to complete it.
--- NOTE | 2018-05-06 05:56 | NUR ---
Student documentation: I have reviewed and agree with all interventions, assessments performed and documented by Sondra winters Rn student. Addendum: 05/06/18 at 0557 by Farida Roy RN Amended: Links added.
--- NOTE | 2018-05-06 06:03 | NUR ---
Problems reprioritized. Patient report given, questions answered & plan of care reviewed with Carla Hollingsworth. Addendum: 05/06/18 at 0603 by Farida Roy RN Amended: Links added.
--- NOTE | 2018-05-06 06:41 | NUR ---
Patient in room NURY 350. I have received report from Farida CM and Sondra SUNG and had the opportunity to ask questions and assume patient care.
[2018-05-06] MEDS: oxyCODONE/APAP 10/325mg tablet PO PRN ×4 (07:07→21:08)
--- NOTE | 2018-05-06 07:07 | NUR ---
Already pulled out 1 tab of Percocet, patient angrily refused it and wanted to take 2 tabs of Percocet for his pain. Percocet 1 tab wasted witnessed by Adrianne CM. Percocet 2 tabs given for pain per patient's request
[2018-05-06 07:11] LABS: BASOPHILS # (AUTO) 0.1 X10'3 (0-0.2); BASOPHILS % (AUTO) 1.6 % (0-1); EOSINOPHILS # (AUTO) 0.2 X10'3 (0-0.9); EOSINOPHILS % (AUTO) 5.6 % (0-6); LYMPHOCYTES # (AUTO) 1.3 X10'3 (1.1-4.8); LYMPHOCYTES % (AUTO) 32.9 % (21-51); MEAN CORPUSCULAR HEMOGLOBIN 30.5 PG (27.0-31.0); MEAN CORPUSCULAR HGB CONC 33.2 g/dL (33.0-36.5); MEAN CORPUSCULAR VOLUME 91.6 FL (78-98); MEAN PLATELET VOLUME 7.7 FL (7.4-10.4); MONOCYTES # (AUTO) 0.5 X10'3 (0-0.9); MONOCYTES % (AUTO) 11.4 % (2-12); NEUTROPHILS # (AUTO) 1.9 X10'3 (1.8-7.7); NEUTROPHILS % (AUTO) 48.5 % (42-75); PRE OP HEMATOCRIT 29.7 % (42.0-52.0); PRE OP PLATELET COUNT 186 X10'3 (140-440); RED BLOOD COUNT 3.24 X10'6 (4.70-6.10); RED CELL DISTRIBUTION WIDTH 14.6 % (11.5-14.5)
[2018-05-06 07:15] LABS: PRE OP HEMOGLOBIN 9.9 g/dL (14.0-17.9)
[2018-05-06 07:23] LABS: PRE OP PROTIME 9.9 SECONDS (9.0-12.0)
[2018-05-06 07:26] LABS: ALBUMIN 3.2 G/DL (3.4-5.0); ALBUMIN/GLOBULIN RATIO 1.2 (1.1-1.5); ALKALINE PHOSPHATASE 81 IU/L (46-116); BLOOD UREA NITROGEN 15 MG/DL (7-18); BUN/CREATININE RATIO 15.8 (5.4-32.0); CALCIUM 9.3 MG/DL (8.5-10.1); CHLORIDE 107 MMOL/L (99-107); CREATININE 0.95 MG/DL (0.60-1.10); PRE OP ALT 24 U/L (30-65); PRE OP ANION GAP 4 (8-16); PRE OP AST 13 U/L (10-37); PRE OP BILIRUB, TOTAL 0.2 MG/DL (0.0-1.0); PRE OP GLUCOSE 86 MG/DL (70-104); PRE OP POTASSIUM 4.3 MMOL/L (3.4-5.1); PRE OP SODIUM 142 MMOL/L (135-145); TOTAL CARBON DIOXIDE 30.6 MMOL/L (24-32); TOTAL PROTEIN 5.9 G/DL (6.4-8.2); eGFR 81 ML/MIN
[2018-05-06] MEDS: K and/or MAG REPLACEMENT MC SCH (08:00)
--- NOTE | 2018-05-06 08:16 | NUR ---
Patient's peripheral IV catheter leaking and outdated, the insertion date said 04/29/18. Removed peripheral IV catheter with patient's permission. Patient requested to have hair shaved/clipped prior to inserting another peripheral IV catheter
[2018-05-06] MEDS: clonazePAM 1mg tablet PO SCH ×2 (08:26→21:08)
[2018-05-06] MEDS: tamsulosin 0.4mg capsule PO SCH ×2 (08:26→19:14)
[2018-05-06] MEDS: pantoprazole 40mg Tablet.DR PO SCH (08:27)
[2018-05-06] MEDS: busPIRone 5mg tablet PO SCH ×2 (08:27→21:07)
[2018-05-06] MEDS: levoTHYROXINE 25mcg tablet PO SCH (08:27)
[2018-05-06] MEDS: nicotine 14mg patch - 24hr TD SCH (08:28)
--- NOTE | 2018-05-06 08:55 | NUR ---
Patient's preop Hgb this am was 9.9 - Dr. Ayers notified. Order to type and crossmatch received, lab notified about this
--- NOTE | 2018-05-06 09:33 | NUR ---
Patient has been refusing peripheral IV catheter reinsertion. He states "I won't let you put an IV on me!" Charge nurse notified. Patient allowed ramp boss at bedside poke him for the preop type and crossmatch but was upset because he has to have another blood draw
--- NOTE | 2018-05-06 10:19 | NUR ---
Reinserted a new peripheral IV catheter g20 on patient's right forearm with his permission. Patient refused to be hooked back to IVF NS
--- NOTE | 2018-05-06 11:12 | NUR ---
Report given to Emmanuel CM from PACU
[2018-05-06] MEDS: clonazePAM 0.5mg tablet PO SCH (11:20)
--- NOTE | 2018-05-06 11:44 | NUR ---
Patient just left the unit accompanied by OR staff and the sitter to the OR
[2018-05-06] MEDS ORDERED: LIDOcaine 1% 30ml preserv. free vial ONE (12:07)
[2018-05-06] MEDS ORDERED: ROPIVAcaine 0.5% (5mg/ml) 30ml vial ONE (12:08)
[2018-05-06] MEDS ORDERED: BUPIVACAINE liposomal/PF 13.3 MG/ML vial IM ONE (12:09)
[2018-05-06] MEDS ORDERED: BUPIVAcaine/PF 2.5mg/ml (0.25%) 10ml vial ONE (12:10)
[2018-05-06] MEDS ORDERED: MIDAZolam 5mg/5ml vial ONE (12:12)
[2018-05-06] MEDS ORDERED: fentaNYL /PF 50mcg/ml 5ml ampule ONE (12:13)
[2018-05-06] MEDS ORDERED: LIDOcaine 2% (20mg/ml) 5ml vial ONE (12:17)
[2018-05-06] MEDS ORDERED: propofol inj 20 ML IV ONE (12:17)
[2018-05-06] MEDS ORDERED: rocuronium 10mg/ml inj IV ONE ×3 (12:18→13:52)
[2018-05-06] MEDS ORDERED: ringers solution, lacted 1,000 ML IV SCH (12:21)
[2018-05-06] MEDS ORDERED: fentaNYL/PF 50MCG/1 ML 2ML syringe IV PRN ×2 (12:25)
[2018-05-06] MEDS ORDERED: morphine 4 MG/ML inj SYRINge IV PRN ×2 (12:25)
[2018-05-06] MEDS ORDERED: hydrALAZINE 20mg/ml inj. IV PRN (12:25)
[2018-05-06] MEDS ORDERED: ondansetron/PF 4mg/2ml inj IV PRN ×2 (12:25→14:30)
[2018-05-06] MEDS ORDERED: labetalol 20mg/4ml (5mg/ml) syringe IV PRN (12:25)
[2018-05-06] MEDS ORDERED: dexamethasone sod phosphate 10mg/ml inj ONE (12:31)
[2018-05-06] MEDS ORDERED: neostigmine methylsulfate 1 MG/ML 10ml vial ONE (12:31)
[2018-05-06] MEDS ORDERED: sevoflurane 250ml liquid IH ONE (12:31)
[2018-05-06] MEDS ORDERED: cefotetan 2gm/isosm dext IVPB 50 ML IV ONE (13:00)
[2018-05-06] MEDS ORDERED: ondansetron/PF 4mg/2ml inj ONE (13:30)
[2018-05-06] MEDS ORDERED: glycopyrrolate 0.2mg/ml inj ONE (13:31)
[2018-05-06] MEDS ORDERED: morphine 10mg/ml inj. ONE (13:31)
--- NOTE | 2018-05-06 14:25 | NUR ---
Received from OR via , accompanied by Anesthesiologist DR RUBIN and report given by Anesthesiolgist. AWAKENS TO VOICE. VITALS STABLE. DRESSING DI. JOYA PAIN. ABD SOFT. ERVIN WITH CLEAR URINE.
--- NOTE | 2018-05-06 14:38 | NUR ---
Patient's sister called and introduced herself as Alejandra. The sister's name not in the contact information, I told this person I cannot provide information about the patient since patient is not in his room to ask permission to give an update
--- NOTE | 2018-05-06 15:15 | NUR ---
Report called to receiving nurse. Transferred via BED Belongings . Special Issues communicated to receiving nurse. AWAKE AND ORIENETED. VITALS STABLE. DRESSING DI. STATES PAIN IMPROVING. TO SURGICAL RM 350B AT THIS TIME.
--- NOTE | 2018-05-06 15:26 | NUR ---
Patient just got back from the PACU. Patient is alert but will be drowsy at times. Sitter at bedside. Patient hooked to vital signs machine to monitor post op vitals. Encouraged patient to take a deep breath
[2018-05-06] MEDS ORDERED: ADDVANTAGE IV SCH (16:00)
[2018-05-06] MEDS ORDERED: CEFOXITIN IV SCH (16:00)
[2018-05-06] MEDS ORDERED: NORMAL SALINE IV SCH (16:00)
--- NOTE | 2018-05-06 16:33 | NUR ---
I let patient know that his sister Alejandra called while he was in the OR. 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
[2018-05-06] MEDS: cefotetan 1gm/50ml IVPB 50 ML IV SCH ×2 (17:03→23:29)
--- NOTE | 2018-05-06 18:56 | NUR ---
Problems reprioritized. Patient report given, questions answered & plan of care reviewed with Marybeth CM.
[2018-05-06] MEDS: ketorolac tromethamine 15mg/ml inj. IV SCH (21:06)
[2018-05-06] MEDS: acetaminophen 325mg tablet PO SCH (21:07)
[2018-05-06] MEDS: tizanidine 4mg tablet PO PRN (21:07)
[2018-05-06] MEDS: quetiapine 100mg tablet PO SCH (21:09)
--- NOTE | 2018-05-06 22:31 | NUR ---
Patient in room NURY 350. I have received report from TOI García and had the opportunity to ask questions and assume patient care. Addendum: 05/06/18 at 2233 by Marybeth Weiss RN Amended: Links added.
[2018-05-07 00:10] VITALS: BP 100/64
--- NOTE | 2018-05-07 01:17 | NUR ---
at approximately 2029 on 05/06 pt. insisting that i dc his fc. call to dr. minaya to ask if ok to dc fc, states "absolutely not". informed pt of what said and pt is agreeable to leave eileen in.
[2018-05-07] MEDS: ketorolac tromethamine 15mg/ml inj. IV SCH ×4 (01:52→20:20)
[2018-05-07] MEDS: oxyCODONE/APAP 10/325mg tablet PO PRN ×5 (01:52→22:38)
[2018-05-07] MEDS: acetaminophen 325mg tablet PO SCH ×5 (01:53→19:16)
[2018-05-07 04:14] VITALS: BP 101/57
--- NOTE | 2018-05-07 06:21 | NUR ---
Problems reprioritized. Patient report given, questions answered & plan of care reviewed with TOI David. Addendum: 05/07/18 at 0622 by Marybeth Weiss RN Amended: Links added.
--- NOTE | 2018-05-07 06:21 | NUR ---
Problems reprioritized. Patient report given, questions answered & plan of care reviewed with TOI David. Addendum: 05/07/18 at 0621 by Marybeth Weiss RN Amended: Links added.
[2018-05-07 07:00] VITALS: BP 101/55
[2018-05-07] MEDS: busPIRone 5mg tablet PO SCH ×2 (07:33→20:20)
[2018-05-07] MEDS: levoTHYROXINE 25mcg tablet PO SCH (07:33)
[2018-05-07] MEDS: clonazePAM 1mg tablet PO SCH ×2 (07:33→20:20)
[2018-05-07] MEDS: tamsulosin 0.4mg capsule PO SCH ×2 (07:34→20:20)
[2018-05-07] MEDS: pantoprazole 40mg Tablet.DR PO SCH (07:34)
[2018-05-07] MEDS: enoxaparin 40mg/0.4ml syringe SQ SCH (07:34)
[2018-05-07] MEDS: nicotine 14mg patch - 24hr TD SCH (07:35)
--- NOTE | 2018-05-07 07:43 | NUR ---
pt accidently pulled out his iv, will admin toradol after i replace his iv
[2018-05-07] MEDS: K and/or MAG REPLACEMENT MC SCH (08:00)
[2018-05-07 11:00] VITALS: BP 101/63
[2018-05-07] MEDS: clonazePAM 0.5mg tablet PO SCH (12:30)
[2018-05-07] MEDS: normal saline 1000ml 1,000 ML IV SCH (16:15)
--- NOTE | 2018-05-07 17:44 | NUR ---
Patient in room NURY 350. I have received report from PRESTON CM and had the opportunity to ask questions and assume patient care.
--- NOTE | 2018-05-07 18:22 | NUR ---
Problems reprioritized. Patient report given, questions answered & plan of care reviewed with PRESTON CM.
--- NOTE | 2018-05-07 19:48 | NUR ---
Patient in room NURY 350. I have received report from TOI David and had the opportunity to ask questions and assume patient care. Addendum: 05/07/18 at 1949 by Marybeth Weiss RN Amended: Links added.
[2018-05-07 20:00] VITALS: BP 107/65
[2018-05-07] MEDS: quetiapine 100mg tablet PO SCH (20:20)
[2018-05-08] VITALS: BP 113/67
[2018-05-08] MEDS: oxyCODONE/APAP 10/325mg tablet PO PRN ×5 (02:22→21:32)
[2018-05-08] MEDS: ketorolac tromethamine 15mg/ml inj. IV SCH ×4 (02:22→19:50)
--- NOTE | 2018-05-08 06:19 | NUR ---
Problems reprioritized. Patient report given, questions answered & plan of care reviewed with TOI David. Addendum: 05/08/18 at 0619 by Marybeth Weiss RN Amended: Links added.
--- NOTE | 2018-05-08 06:24 | NUR ---
DEE garcia. Pt. tolerated procedure with minimal discomfort. Addendum: 05/08/18 at 0625 by Marybeth Weiss RN Amended: Links added.
[2018-05-08 07:00] VITALS: BP 109/62
[2018-05-08] MEDS: K and/or MAG REPLACEMENT MC SCH (08:00)
--- NOTE | 2018-05-08 08:04 | NUR ---
Patient in room NURY 350. I have received report from PRESTON CM and had the opportunity to ask questions and assume patient care.
[2018-05-08] MEDS: nicotine 14mg patch - 24hr TD SCH (08:39)
[2018-05-08] MEDS: levoTHYROXINE 25mcg tablet PO SCH (08:40)
[2018-05-08] MEDS: clonazePAM 1mg tablet PO SCH ×2 (08:41→19:04)
[2018-05-08] MEDS: busPIRone 5mg tablet PO SCH ×2 (08:41→19:04)
[2018-05-08] MEDS: pantoprazole 40mg Tablet.DR PO SCH (08:42)
[2018-05-08] MEDS: enoxaparin 40mg/0.4ml syringe SQ SCH (08:43)
[2018-05-08] MEDS: tamsulosin 0.4mg capsule PO SCH ×2 (08:46→19:04)
--- NOTE | 2018-05-08 10:53 | NUR ---
SS had t/c w/Joy from [facility] to inform her that pt is close to being medically cleared for d/c and request that [facility] reassess pt for possible readmission there. Per t/c, [facility] currently has no beds, and request that pt be re-assess to determine if he continues to meet 5150 criteria at this time. Plan: SS will reassess pt's MH status/conditions and coordinate linkages to either emergent MH or Outpatient MH services per assessment. Addendum: 05/08/18 at 1057 by Zoey Perdue SS Amended: Links added.
[2018-05-08 11:00] VITALS: BP 137/66
[2018-05-08] MEDS: clonazePAM 0.5mg tablet PO SCH (12:55)
[2018-05-08 18:00] VITALS: BP 113/71
--- NOTE | 2018-05-08 18:23 | NUR ---
GAVE REPORT TO JORGE CM
--- NOTE | 2018-05-08 18:30 | NUR ---
Patient in room NURY 350. I have received report from Joann CM and had the opportunity to ask questions and assume patient care.
[2018-05-08] MEDS: quetiapine 100mg tablet PO SCH (19:04)
[2018-05-09] VITALS: BP 99/55
[2018-05-09] MEDS: ketorolac tromethamine 15mg/ml inj. IV SCH ×4 (02:00→19:40)
[2018-05-09] MEDS: oxyCODONE/APAP 10/325mg tablet PO PRN ×5 (04:02→20:31)
[2018-05-09] MEDS: tizanidine 4mg tablet PO PRN ×2 (05:08→16:12)
[2018-05-09 05:17] LABS: BASOPHILS # (AUTO) 0.1 X10'3 (0-0.2); BASOPHILS % (AUTO) 0.9 % (0-1); EOSINOPHILS # (AUTO) 0.2 X10'3 (0-0.9); EOSINOPHILS % (AUTO) 3.3 % (0-6); HEMATOCRIT 27.2 % (42.0-52.0); HEMOGLOBIN 9.1 g/dl (14.0-17.9); LYMPHOCYTES # (AUTO) 1.6 X10'3 (1.1-4.8); LYMPHOCYTES % (AUTO) 27.2 % (21-51); MEAN CORPUSCULAR HEMOGLOBIN 30.3 PG (27.0-31.0); MEAN CORPUSCULAR HGB CONC 33.5 g/dL (33.0-36.5); MEAN CORPUSCULAR VOLUME 90.5 FL (78-98); MEAN PLATELET VOLUME 8.5 FL (7.4-10.4); MONOCYTES # (AUTO) 0.5 X10'3 (0-0.9); MONOCYTES % (AUTO) 8.9 % (2-12); NEUTROPHILS # (AUTO) 3.6 X10'3 (1.8-7.7); NEUTROPHILS % (AUTO) 59.7 % (42-75); PLATELET COUNT 176 X10'3 (140-440); RED CELL DISTRIBUTION WIDTH 14.6 % (11.5-14.5)
[2018-05-09 05:21] LABS: ALANINE AMINOTRANSFERASE 41 U/L (12-78); ALBUMIN 2.8 G/DL (3.4-5.0); ALKALINE PHOSPHATASE 79 IU/L (46-116); ANION GAP 8 (8-16); ASPARTATE AMINO TRANSFERASE 25 U/L (10-37); BILIRUBIN,TOTAL 0.2 MG/DL (0.1-1.0); BLOOD UREA NITROGEN 9 MG/DL (7-18); BUN/CREATININE RATIO 8.7 (5.4-32.0); CALCIUM 8.7 MG/DL (8.5-10.1); CHLORIDE 103 MMOL/L (99-107); CREATININE 1.03 MG/DL (0.60-1.10); GLUCOSE 89 MG/DL (70-104); MAGNESIUM 1.7 MG/DL (1.5-2.4); POTASSIUM 4.1 MMOL/L (3.5-5.1); SODIUM 140 MMOL/L (135-145); TOTAL CARBON DIOXIDE 28.7 MMOL/L (24-32); TOTAL PROTEIN 5.7 G/DL (6.4-8.2); eGFR 74 ML/MIN
--- NOTE | 2018-05-09 06:25 | NUR ---
Problems reprioritized. Patient report given, questions answered & plan of care reviewed with Mark Rosario present at bedside.
--- NOTE | 2018-05-09 06:41 | NUR ---
Patient in room NURY 350. I have received report from TOI PATEL and had the opportunity to ask questions and assume patient care.
[2018-05-09 07:32] VITALS: BP 118/65
[2018-05-09] MEDS: K and/or MAG REPLACEMENT MC SCH (08:00)
[2018-05-09] MEDS: levoTHYROXINE 25mcg tablet PO SCH (08:08)
[2018-05-09] MEDS: clonazePAM 1mg tablet PO SCH ×2 (08:08→19:38)
[2018-05-09] MEDS: busPIRone 5mg tablet PO SCH ×2 (08:08→19:39)
[2018-05-09] MEDS: tamsulosin 0.4mg capsule PO SCH ×2 (08:08→19:39)
[2018-05-09] MEDS: nicotine 14mg patch - 24hr TD SCH (08:08)
[2018-05-09] MEDS: pantoprazole 40mg Tablet.DR PO SCH (08:09)
[2018-05-09] MEDS: enoxaparin 40mg/0.4ml syringe SQ SCH (08:09)
[2018-05-09] MEDS ORDERED: ENOX40DI11 SQ (09:48)
[2018-05-09] MEDS ORDERED: PER10325T PO (09:48)
[2018-05-09 12:58] VITALS: BP 101/68
[2018-05-09] MEDS: clonazePAM 0.5mg tablet PO SCH (13:01)
--- NOTE | 2018-05-09 15:32 | NUR ---
SS met w/pt to reassess risk of danger to self as a result of grave disability associated w/pt's MH condition(s). Pt was defensive & reluctant to participate in assessment. A [place]-Suicide Severity Rating Scale was completed and result is as follows: Pt continues (current & w/in past month) to experience suicidal ideations, thoughts about suicide. He also have thought about how he might kill himself (w/in past month- these are in the form of commanding A/H); pt reports no current thoughts but still experience commanding A/H. Pt also answered positively to question re intent w/o specific plan both w/in past month and current; he answered negatively to question re intent w/specific plan both w/in past month & currently. With regard to suicide behavior(s), pt slashed his wrist about 2 weeks ago, requiring hospitalization and blood transfusion; since he's been in the hospital, there's been no suicide bxs noted. Pt appears to struggle w/internal stimuli during assessment. Collateral Information: SS had t/c with pt's CM @ [facility] in [facility], she reports that pt struggles with sxs associated w/depression & schizophrenia, is delusional, believes that his home is the entry portal to [facility]. She further reports that he is highly suspicious of others therefore, it's difficult for service providers to engage with him; pt has IHSS but refused to allow providers to enter his home. In addition, pt requires constant external reminders to take meds as he is unable to remember on his own. Pt goes to the outpt clinic daily so he can get his meds. Static Risk Factors: Chronic Depression & Schizophrenia with commanding A/H, paranoia & delusional belief newly diagnosed w/cancer Responded to A/H 2 weeks ago and slashed wrist, deep enough to require blood transfusion Recently d/c from [facility] Dynamic Risk Factors: Pt unable to comply with treatment regiment w/o external reminders requires intensive outpt f/u to treat cancer condition Social Support sxs: None other than providers @ the [facility]. Plan: SS to refer pt to [facility] for 5150 eval as pt may be at risk of danger to self as a result of grave disability associated w/MH condition(s). Addendum: 05/09/18 at 1603 by Zoey BRENNAN Amended: Links added.
--- NOTE | 2018-05-09 16:23 | NUR ---
Reassessment: Pt s/p resection of lower anterior colon on 05/06/18. Pt much improved and medically and surgically cleared for d/c per MD progress notes. Pt awaiting transfer to [facility] per MD progress notes. Pt on regular diet with documented PO intake 100% meeting nutrient needs. [facility] 05/08. Will continue to follow. Rec: 1. continue regular diet 2. wt per rx Addendum: 05/09/18 at [address] Amended: Links added.
--- NOTE | 2018-05-09 17:40 | NUR ---
Patient asked kindly if he could keep the Toradol vial after his scheduled Toradol administration. 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 Patient replied, "other people have been giving it to me. I just take off the top and rinse out the medication." Again, let patient know that he cannot have the vial. Patient then replied, "we'll, it's okay, don't bother asking about it. I was just asking you if I could have it since I collect the glass and other people have been giving it to me as well. I swear I just clean out the bottle. I won't do anything with it." jose daniel Armando, was at patient's bedside. At approximately 1400, Prabha, patient's sitter was to have lunch break therefore another PCT, Sofiya, would be patient's sitter until Prabha's break over. Patient had requested that Prabha no longer be sitter as well as he "did not feel respected and I can't respect someone who can't respect me. And I don't want to feel like I'm doing things wrong." Alley then replaced as patient's sitter at bedside. Discussed with Alley patient's odd request to have Toradol vial and that he had claimed another person had given him vials before. Alley then stated that she had witnessed another RN the day prior, giving patient a vial after "taking the top off and rinsing it out." Immediately informed charge attendantCarley and SS worker, Zoey, regarding the vials. Zoey and Riley went to patient's room and questioned him about having "glass". Patient then stated, "I don't have the glass. I was just asking you if I could have it. Remember, I only asked. No one ever gave me any glass." Alley then mouthed what appeared to be, "He has them." Patient insistent that he never had the glass vials and also refused to have his belongings checked. Zoey and Riley notified charge attendant, Linda. Alley was removed from the room and replaced with another PCT as sitter and Alley was asked if she knew where he had put the vials and Alley stated she knew where patient placed the vials because as Zoey and I left patient's room, he had pulled them out from his "zipped bag." Alley was then instructed to ambulate with patient on floor. x2 empty Toradol vials with miller cap removed and were wrapped in tissues. Vials were discarded.
[2018-05-09 18:00] VITALS: BP 122/68
--- NOTE | 2018-05-09 18:30 | NUR ---
Patient in room NURY 350. I have received report from Mark CM and had the opportunity to ask questions and assume patient care. Sitter is at bedside.
--- NOTE | 2018-05-09 18:32 | NUR ---
Problems reprioritized. Patient report given, questions answered & plan of care reviewed with TOI Gao.
[2018-05-09] MEDS: quetiapine 100mg tablet PO SCH (19:38)
[2018-05-10] VITALS: BP 126/77
[2018-05-10] MEDS: oxyCODONE/APAP 10/325mg tablet PO PRN ×4 (01:06→13:55)
[2018-05-10] MEDS: ketorolac tromethamine 15mg/ml inj. IV SCH ×3 (02:22→13:22)
--- NOTE | 2018-05-10 06:33 | NUR ---
Problems reprioritized. Patient report given, questions answered & plan of care reviewed with Vaishnavi CM. Sitter walking with pt. Pt requests "charge nurse Mark" to make "anais the aide" sit with him this evening. RNs told pt that we would make this request to Mark for him, but could not make any promises on his behalf.
[2018-05-10 06:34] LABS: BASOPHILS # (AUTO) 0.1 X10'3 (0-0.2); EOSINOPHILS # (AUTO) 0.2 X10'3 (0-0.9); EOSINOPHILS % (AUTO) 4.3 % (0-6); HEMATOCRIT 24.5 % (42.0-52.0); HEMOGLOBIN 8.3 g/dl (14.0-17.9); LYMPHOCYTES # (AUTO) 1.3 X10'3 (1.1-4.8); LYMPHOCYTES % (AUTO) 22.6 % (21-51); MEAN CORPUSCULAR HEMOGLOBIN 30.5 PG (27.0-31.0); MEAN CORPUSCULAR HGB CONC 33.9 g/dL (33.0-36.5); MEAN CORPUSCULAR VOLUME 89.8 FL (78-98); MEAN PLATELET VOLUME 8.6 FL (7.4-10.4); MONOCYTES # (AUTO) 0.5 X10'3 (0-0.9); MONOCYTES % (AUTO) 8.6 % (2-12); NEUTROPHILS # (AUTO) 3.6 X10'3 (1.8-7.7); NEUTROPHILS % (AUTO) 63.5 % (42-75); PLATELET COUNT 173 X10'3 (140-440); RED BLOOD COUNT 2.73 X10'6 (4.70-6.10); RED CELL DISTRIBUTION WIDTH 14.4 % (11.5-14.5); WHITE BLOOD COUNT 5.7 X10'3 (4.5-11.0)
--- NOTE | 2018-05-10 06:35 | NUR ---
Patient in room NURY 350. I have received report from TOI Gao and had the opportunity to ask questions and assume patient care. Pt requests to speak to charge nurse to arrange to have same aide for NOC shift. Communicated to patient I would express his concerns but had no control over who his aide would be for shift boss.
[2018-05-10 06:50] LABS: ALANINE AMINOTRANSFERASE 31 U/L (12-78); ALBUMIN 2.4 G/DL (3.4-5.0); ALKALINE PHOSPHATASE 75 IU/L (46-116); ANION GAP 5 (8-16); ASPARTATE AMINO TRANSFERASE 16 U/L (10-37); BILIRUBIN,TOTAL 0.2 MG/DL (0.1-1.0); BLOOD UREA NITROGEN 12 MG/DL (7-18); BUN/CREATININE RATIO 11.7 (5.4-32.0); CALCIUM 8.7 MG/DL (8.5-10.1); CHLORIDE 105 MMOL/L (99-107); CREATININE 1.03 MG/DL (0.60-1.10); GLUCOSE 94 MG/DL (70-104); MAGNESIUM 1.7 MG/DL (1.5-2.4); POTASSIUM 4.2 MMOL/L (3.5-5.1); SODIUM 138 MMOL/L (135-145); TOTAL CARBON DIOXIDE 27.9 MMOL/L (24-32); TOTAL PROTEIN 4.9 G/DL (6.4-8.2); eGFR 74 ML/MIN
[2018-05-10] MEDS: pantoprazole 40mg Tablet.DR PO SCH (07:20)
[2018-05-10] MEDS: levoTHYROXINE 25mcg tablet PO SCH (07:20)
[2018-05-10] MEDS: tamsulosin 0.4mg capsule PO SCH (07:20)
[2018-05-10] MEDS: clonazePAM 1mg tablet PO SCH (07:20)
[2018-05-10] MEDS: busPIRone 5mg tablet PO SCH (07:20)
[2018-05-10] MEDS: enoxaparin 40mg/0.4ml syringe SQ SCH (07:21)
[2018-05-10] MEDS: nicotine 14mg patch - 24hr TD SCH (07:22)
[2018-05-10 08:00] VITALS: BP 101/66
[2018-05-10] MEDS: K and/or MAG REPLACEMENT MC SCH (08:00)
[2018-05-10] MEDS: clonazePAM 0.5mg tablet PO SCH (13:21)
--- NOTE | 2018-05-10 17:30 | NUR ---
Patient discharged and escorted by security to ED overflow safely. Report given to ED overflow nursing staff. All belongings sent with patient.
[2018-05-10] MEDS ORDERED: OXYC-138 PO (22:45)
[2018-05-11] MEDS ORDERED: OXYC-150 PO (14:44)
--- NOTE | 2018-05-12 09:30 | NUR ---
Pt was evaluated by [facility] and determined to have met 5150 criteria, [facility] provided 5150-Hold, pt d/c'd, SS referral closed. Addendum: 05/12/18 at 0931 by Zoey Perdue SS Amended: Links added.
[2018-05-14] MEDS ORDERED: QUET100T33 PO (11:09)
[2018-05-14] MEDS ORDERED: LEVO50TA8 PO (11:09)
[2018-05-14] MEDS ORDERED: ATEN-168 PO (11:09)
[2018-05-14] MEDS ORDERED: BUSP10TA11 PO (11:09)
== END 2018-05-10 17:28 | DRG 330 ==
LOC: UNDOADMOB 05:12 → OBSVTOIN 05:12 → SUR 3N 05:12 → INTOOBSV 06:00 → UNDOADMOB 06:00 → SUR 3N 06:00 → PACU 05-06 11:55 → SUR 3N 05-06 15:14
PROVIDERS: ADMIT Hospitalist; ATTEND Family Medicine
PROC: 0DJ08ZZ Inspection of Upper Intestinal Tract, Via Natural or Artificial Opening Endoscopic (ICD-10-PCS; 2018-04-30)
PROC: 0DBN8ZX Excision of Sigmoid Colon, Via Natural or Artificial Opening Endoscopic, Diagnostic (ICD-10-PCS; 2018-05-01)
PROC: 0DBN0ZZ Excision of Sigmoid Colon, Open Approach (ICD-10-PCS; 2018-05-06)
PROC: 3E0T3BZ Introduction of Anesthetic Agent into Peripheral Nerves and Plexi, Percutaneous Approach (ICD-10-PCS; 2018-05-06)
PROC: 0DBP0ZZ Excision of Rectum, Open Approach (ICD-10-PCS; principal; 2018-05-06 12:36)
DX: C19 Malignant neoplasm of rectosigmoid junction (principal); R45.851 Suicidal ideations; C77.9 Secondary and unspecified malignant neoplasm of lymph node, unspecified; D62 Acute posthemorrhagic anemia; E44.1 Mild protein-calorie malnutrition; Z68.42 Body mass index [BMI] 45.0-49.9, adult; K57.30 Diverticulosis of large intestine without perforation or abscess without bleeding; E03.9 Hypothyroidism, unspecified; F20.9 Schizophrenia, unspecified; F32.9 Major depressive disorder, single episode, unspecified; Z88.8 Allergy status to other drugs, medicaments and biological substances; Z79.899 Other long term (current) drug therapy; Z79.890 Hormone replacement therapy
CPT/HCPCS: 36415; 45380; 74177; 80048; 80053; 83735; 85025; 85610; 85730; 86885; 86900; 86901; 87070; 88305; 93005; 94640; 94760; 99152; 99153; A4620; A7000; C1758; C9113; G0378; J1100; J1650; J1885; J2001; J2250; J2270; J2405; J2704; J2710; J2795; J3010; J3490; J7030; J7120; Q9963; Q9967

== ENCOUNTER 2018-05-10 17:35 | Emergency (ER) | payer MEDICARE, MEDICAID ==
[~2018-05-10] VITALS: Ht 182.9 cm; Wt 72.7 kg
[2018-05-10] MEDS: tamsulosin 0.4mg capsule PO SCH
[2018-05-10] MEDS: clonazePAM 1mg tablet PO SCH
[~2018-05-10 17:35] MED LIST changes: +ENOX40DI11 SQ; -OXYC-138 PO; +PER10325T PO
--- NOTE | 2018-05-10 17:55 | NUR ---
PT. BROUGHT TO ROOM 21 FROM FLOOR FOR 5150. PT ARGUMENTATIVE AND DEMANDING PAIN MEDS. PT WAS TOLD THERE IS A PROCESS TO GET HIM SETTLED IN AND MED REC WOULD BE DONE. DR TRUONG AT BEDSIDE TO EVALUATE PT.
--- NOTE | 2018-05-10 18:45 | NUR ---
PT SETTLED AND EATING FOOD. COMPLAINING THAT HE COULD NOT EAT ANY OF IT BUT THEN ATE IT ANYWAY. UP TO BATHROOM BUT STATED HE WAS UNABLE TO HAVE A BOWEL MOVEMENT
[2018-05-10] MEDS ORDERED: quetiapine 100mg tablet PO SCH (20:00)
--- NOTE | 2018-05-10 20:11 | NUR ---
Copy of [id number] faxed to [facility] as per request of [facility] office.
--- NOTE | 2018-05-10 20:57 | NUR ---
PT RESTING QUIETLY IN BED WITH EYES CLOSED.
[2018-05-10] MEDS ORDERED: OXYC-138 PO (22:45)
--- NOTE | 2018-05-10 23:00 | NUR ---
Received report from Manjula CM. Pt states he has pain and is asking about pain medication. Med rec. was reviewed and submitted to pharmacy. Pt has IV in his RT fore arm, and brace on his left wrist. Dressing underneath is foam dressing over steri strips on self inflicted laceration on left wrist. Dressing CDI, brace replace to reduce movement of wrist while laceration heals.
[2018-05-10] MEDS ORDERED: albuterol 2.5 MG/3 ML nebule NEB PRN (23:15)
[2018-05-10] MEDS ORDERED: oxyCODONE/APAP 10/325mg tablet PO PRN (23:15)
--- NOTE | 2018-05-11 00:10 | NUR ---
PT given pain medication for chronic back pain and abdominal surgical pain. Pt given warm blanket to place on his back for muscle relaxation. Pt now resting quietly.
--- NOTE | 2018-05-11 02:19 | NUR ---
Pt appears to be sleeping quietly in bed, on his back with his knees up. Respirations even and unlabored.
--- NOTE | 2018-05-11 04:20 | NUR ---
Pt appears to be sleeping quietly in bed, on his back with his knees up. Respirations even and unlabored.
[2018-05-11] MEDS ORDERED: tizanidine 4mg tablet PO PRN (04:55)
--- NOTE | 2018-05-11 05:20 | NUR ---
Pt asked for and recieved pain medication after a trip to the bathroom. Pt cooperated with the collection of vital signs. Pt appears to be sleeping quietly in bed, on his back with his knees up. Respirations even and unlabored.
[2018-05-11] MEDS: oxyCODONE/APAP 10/325mg tablet PO PRN ×3 (06:09→14:17)
--- NOTE | 2018-05-11 06:30 | NUR ---
Asleep upon change of shift observation. Color and breathing WNL. Undisturbed at this time.
[2018-05-11] MEDS: albuterol 2.5 MG/3 ML nebule NEB SCH ×3 (07:00→15:00)
[2018-05-11] MEDS ORDERED: busPIRone 15mg tablet PO SCH (08:00)
[2018-05-11] MEDS ORDERED: levoTHYROXINE 25mcg tablet PO SCH (08:00)
--- NOTE | 2018-05-11 08:30 | NUR ---
Awakened for breakfast and AM medications. Made a point to inform staff that he was in "a lot of pain, I'm a 10" and needs his pain medication "every four hours." Informed his medication was ordered "on an as needed basis every four hours and to please inform the nurse if he needed any pain medication." Patient stated he understood this information.
[2018-05-11] MEDS: clonazePAM 1mg tablet PO SCH (08:44)
[2018-05-11] MEDS: tamsulosin 0.4mg capsule PO SCH (08:46)
[2018-05-11] MEDS ORDERED: budesonide 0.5mg/2ml UD nebule IH SCH (09:00)
--- NOTE | 2018-05-11 10:30 | NUR ---
Napping at this time. Both legs bent at the knee. Color and breathing WNL.
[2018-05-11] MEDS ORDERED: clonazePAM 0.5mg tablet PO SCH (12:30)
--- NOTE | 2018-05-11 12:30 | NUR ---
Awake and asking staff if he had breakfast yet. Informed he had breakfast and next would be having lunch. Patient repeated to staff that he was in pain and would appreciate if staff nurse had his medication ready "as soon as it was due." Informed he would be given medication as ordered. Ate well at lunch though eats slowly, holding his abdomen.
--- NOTE | 2018-05-11 14:40 | NUR ---
Jt RN, Charge Nurse from [facility] here to assess patient for admission to their unit. Arnaldo Bedolla PA here to assess patient also. Rachele from [facility] called to say patient had accepted to [facility]. Patient informed. Accepted information with some hesitation.
[2018-05-11] MEDS ORDERED: OXYC-150 PO (14:44)
[2018-05-11 15:09] VITALS: BP 110/66
[2018-05-14] MEDS ORDERED: QUET100T33 PO (11:09)
[2018-05-14] MEDS ORDERED: ATEN-168 PO (11:09)
[2018-05-14] MEDS ORDERED: BUSP10TA11 PO (11:09)
[2018-05-14] MEDS ORDERED: LEVO50TA8 PO (11:09)
== END 2018-05-11 15:15 ==
LOC: ER 17:35
DX: F32.9 Major depressive disorder, single episode, unspecified (principal); K62.89 Other specified diseases of anus and rectum; F20.9 Schizophrenia, unspecified; F12.90 Cannabis use, unspecified, uncomplicated; Z88.8 Allergy status to other drugs, medicaments and biological substances
CPT/HCPCS: 99285

== ENCOUNTER 2018-05-11 13:30 | Inpatient (IN) | payer MEDICARE, MEDICAID | END 2018-05-14 11:30 | disposition home or self-care (01) | LOC: ADULT MH 13:30 | DX: F20.9 Schizophrenia, unspecified (principal); F32.9 Major depressive disorder, single episode, unspecified; E03.9 Hypothyroidism, unspecified ==

== ENCOUNTER 2019-03-24 11:13 | Day surgery (SDC) | payer MEDICARE, MEDICAID ==
[~2019-03-24] VITALS: Ht 182.9 cm; Wt 76.6 kg
[~2019-03-24 11:13] MED LIST changes: +ATEN-168 PO; -CLON-528 PO; -CLON-568; -ENOX40DI11 SQ; -NICO-631 TD; +OXYC-150 PO; -PANT40VI2 IV; -PER10325T PO; +QUET100T33 PO; -QUET200T PO; -TRAZ-218 PO
[2019-03-24] MEDS ORDERED: heparin sodium, porcine/PF 100unit/ml 5ML syringe ONE (11:47)
== END 2019-03-24 14:50 | disposition home or self-care (01) ==
LOC: SSTAY O 11:13
PROVIDERS: ATTEND Radiology Vascular & Interventional Radiology
DX: T82.9XXA Unspecified complication of cardiac and vascular prosthetic device, implant and graft, initial encounter (principal); Z53.8 Procedure and treatment not carried out for other reasons; Y92.89 Other specified places as the place of occurrence of the external cause; Y99.8 Other external cause status; Z88.8 Allergy status to other drugs, medicaments and biological substances
CPT/HCPCS: J1642